=== PATIENT | female | born 1960 | race Caucasian/White ===

== ENCOUNTER 2020-02-06 13:39 | Inpatient (IN) | payer MEDICARE, SELFPAY ==
[2020-02-06 13:40] VITALS: BP 135/88; PULSE 79; RESP 18; TEMP 36.6; O2SAT 98; BMI 35.3
--- NOTE | 2020-02-06 14:10 | ED.DCSUM_ITS ---
History of Present Illness Chief Complaint: Wound Check Informant: Patient Onset: Days Context: Gradual Onset Current Severity: Moderate Maximum Severity: Moderate Narrative: Patient presents secondary to diabetic foot infection. She states she tends to have calluses on the top of her foot. This is followed closely by her facility maintenance supervisor at the [facility]. Last weekend, approximately 3 days ago, patient noted increased swelling and some drainage from the callused area on her foot. She was seen by her veneer jointer operator yesterday. I&D was performed in the office and cultures were sent. She was started on antibiotics. She believes she was started on clindamycin as well as one other antibiotic that she did not remember the name of. Patient states that she has been very nauseated and has had difficulty keeping these medications down. She spoke with her facility maintenance supervisor who felt she should be admitted for IV antibiotics. - Past Medical History (1) Diabetes Status: Chronic (2) Sleep apnea Status: Chronic (3) Neuropathy Status: Chronic (4) Asthma Status: Chronic (5) Hypertension Status: Chronic (6) High cholesterol Status: Chronic Past Medical History - Allergies and Home Meds Allergies/Adverse Reactions: Allergies Gadolinium-MRI Contrast Medium Allergy (Verified 02/06/20 13:43) Rash Penicillins Allergy (Verified 02/06/20 13:43) Rash Primary Care Physician: Yoandy Montoya MD [Primary Care Provider] - Doctors: Dr Ronquillo, podiatry at [facility] Prior records reviewed: Yes Review of Systems General: Reports: Chills. Denies: Fever Eyes: Denies: Visual changes - bilaterally ENT: Denies: Bilateral ear pain Cardiovascular: Denies: Chest pain Respiratory: Denies: Dyspnea, Cough Gastrointestinal: Reports: Nausea, Vomiting. Denies: Abdominal pain Genitourinary: Denies: Dysuria Musculoskeletal: Reports: Swelling, Extremity Pain Skin: Reports: Wounds Neurological: Denies: Headache Hematologic: Denies: Easy bruising, Easy bleeding Allergy: Denies: Uticaria Physical Exam Vital Signs/Narrative: Vital Signs Temp Pulse Resp BP Pulse Ox 02/06/20 13:40 98 F 79 18 135/88 H 98 Inital Vital Signs reviewed: Yes General: Well nourished, Well developed Head: Normocephalic ENT: Moist mucous membranes Neck: Supple Cardiovascular: Regular rate, Regular rhythm Respiratory: No distress, CTA bilaterally Abdomen: Soft, Nontender Extremities: - - Patient has significant edema over the distal aspect of the left foot. The base of the second toe is significantly edematous. There is an open wound on the plantar surface near the base of the second MTP joint. There is mild erythema outlined to the level of the distal metatarsals. This is unchanged when compared to line drawn yesterday. Psychological: Normal affect Diagnostic/Tx/Re-eval Impressions Foot X-Ray 02/06/20 15:10 IMPRESSION: Diffuse soft tissue swelling overlying the first second and third metatarsophalangeal joints. A small amount of air is seen within the soft tissues. Absence of the base of the proximal phalanx of the second toe. This may be secondary to osteomyelitis and bony destruction. Electronically Signed: Jesus Glover, at 15:27 EDT , Service support , 02/06/20 15:10 Foot min 3 Views [RAD] Stat Laboratory Results 02/06/20 02/06/20 14:26 14:26 WBC 10.8 RBC 4.49 Hgb 12.3 Hct 37.7 MCV 84.0 MCH 27.4 MCHC 32.6 RDW Std Deviation 40.1 RDW Coeff of Joseph 13.2 Plt Count 229 MPV 9.8 Immature Gran % (Auto) 0.800 Neut % (Auto) 80.6 H Lymph % (Auto) 10.8 L Amelia % (Auto) 5.8 Eos % (Auto) 1.7 Baso % (Auto) 0.3 Absolute Neuts (auto) 8.7 H Absolute Lymphs (auto) 1.17 Nucleated RBC % 0 Sodium 138 Potassium 3.5 Chloride 100 Carbon Dioxide 28.0 Anion Gap 10 BUN 14 Creatinine 0.68 Estim Creat Clear Calc 75.97 Est GFR (MDRD) Af Amer 113 Est GFR (MDRD) Non-Af 94 BUN/Creatinine Ratio 20.6 H Glucose 155 H Calcium 9.4 - Medical Decision Making Patient was given Phenergan for nausea. She was given vancomycin, Flagyl, and Cipro for diabetic infection with penicillin allergy. I did receive a fax from her facility maintenance supervisor in [place]. I&D was performed yesterday and wound culture was obtained at that time. Patient had an x-ray that showed no evidence of osteomyelitis. There were postsurgical changes from prior resection of the base of the second toe proximal phalanx. ED Disposition - Plan for ED Patient: Referrals: Yoandy Montoya MD [Primary Care Provider] -
[2020-02-06 14:37] LABS: Absolute Lymphocyte Count 1.17 X10^3/uL (0.83-4.51); Absolute Neutrophil Count 8.7 X10^3/uL (2.0-7.7); Basophil# 0.03 X10^3/uL; Basophil% 0.3 % (0-1); Eosinophil# 0.18 X10^3/uL; Eosinophils% 1.7 % (0-5); Hematocrit 37.7 % (37-47); Hemoglobin 12.3 g/dL (12.0-15.0); Lymphocyte # 1.17 X10^3/ul (4.0); Lymphocyte % 10.8 % (19-41); Mean Corp Hgb Conc 32.6 g/dL (32-36); Mean Corpuscular Hgb 27.4 pg (27.0-32.0); Mean Platelet Vol. 9.8 fl (6.2-12.0); Monocyte# 0.63 X10^3/uL; Monocyte% 5.8 % (0-10); NRBC Flagged by Analyzer 0 % (0-5); Neutrophil # 8.72 X10^3/uL (2.7-7.7); Neutrophil % 80.6 % (47-70); Platelet Count 229 K/mm3 (150-450); RBC Distribution Width CV 13.2 % (11.6-14.6); RBC Distribution Width SD 40.1 fl (35.1-43.9); Red Blood Count 4.49 M/mm3 (4.2-5.4); White Blood Count 10.8 K/mm3 (4.4-11.0)
[2020-02-06] MEDS: 0.9% Normal Saline 1,000 ML 150 ML IV (14:43)
[2020-02-06] MEDS: metroNIDAZOLE 500 MG/100 ML BAG 100 MG IV ×2 (14:43→21:55)
[2020-02-06] MEDS: proMETHazine 25 MG/ML Syringe 12.5 MG IV (14:57)
[2020-02-06 15:08] LABS: Anion Gap 10 (5-15); BUN 14 mg/dL (7-18); BUN/Creat Ratio 20.6 RATIO (10-20); Calcium,Total 9.4 mg/dL (8.5-10.1); Chloride 100 mmol/L (98-107); Creatinine, Serum 0.68 mg/dL (0.55-1.02); EST Glomerular Filtration Rate 94 mL/min (>60); Est Glom Filt Rate - Afr Amer 113 mL/min (>60); Estimated Creatinine Clearance 75.97 ml/min; Glucose 155 mg/dL (74-106); Potassium 3.5 mmol/L (3.5-5.1); Sodium Level 138 mmol/L (136-145)
--- NOTE | 2020-02-06 15:10 | RAD_ITS ---
STUDY: X-RAY - LEFT FOOT CLINICAL: Female, 59 years old. PATIENT WITH INFECTION IN FOOT WOUND. ON BOTTOM OF FOOT, NEAR 1ST AND 2ND TOES, BALL OF FOOT TECHNIQUE: 3 view(s) of the foot. COMPARISON: None. FINDINGS: There is a plantar calcaneal spur. Normal visualized subtalar, talonavicular, calcaneocuboid, tarsal and tarsometatarsal articulations. Normal metatarsi. Normal metatarsophalangeal joint of the great toe. Normal tibial and fibular sesamoid bones. Normal interphalangeal joint of the great toe. Normal phalanges of the great toe. Normal second through fifth metatarsophalangeal joints. There is absence of the base of the proximal phalanx of the second toe. Diffuse soft tissue swelling is seen overlying the first second and third metatarsophalangeal joints. A small amount of air is seen within the soft tissues. Osteomyelitis with destruction at the base of the proximal phalanx of the second toe should be ruled out. There is non-specific soft tissue swelling of the foot. RAD/Foot min 3 Views IMPRESSION: Diffuse soft tissue swelling overlying the first second and third metatarsophalangeal joints. A small amount of air is seen within the soft tissues. Absence of the base of the proximal phalanx of the second toe. This may be secondary to osteomyelitis and bony destruction. Electronically Signed: Jesus Glover, at 15:27 EDT , Service support ,
[2020-02-06 15:20] VITALS: BP 147/68; PULSE 80; RESP 18; TEMP 36.8; O2SAT 98
[2020-02-06] MEDS: Ciprofloxacin 400 MG/200 ML BAG 200 MG IV ×2 (15:28→23:05)
[2020-02-06 16:25] VITALS: BP 150/72; PULSE 77; RESP 16; TEMP 36.8; O2SAT 97
--- NOTE | 2020-02-06 16:26 | NURSING ---
MED SURG PAINTSIL DIABETIC FOOT INFECTION
--- NOTE | 2020-02-06 16:28 | PCM.HP.STD ---
History of Present Illness Date of Admission: 02/06/20 Chief Complaint: Left foot infection - 1 week The patient is a 59 year old F with past medical history of type II DM, complicated by history of previous foot infections, follows closely with radio repairer in the outpatient in the [facility] system, hypertension, who comes in with complaints of a left foot infection that started about a week ago. Patient noticed that her foot was getting swollen, and getting worse. She went in to see a radio repairer yesterday and had a local wound debridement done in the office. Patient had undergone work-up recently that was reported least negative for for acute osteomyelitis. She was started recently on antibiotics but had nausea and could not take the antibiotics. Emergency Room Tech recommended admission and IV antibiotics. Patient admitted to some chills but no fever. Denied any sick contacts. Denied any shortness of breath or cough or respiratory symptoms. Vitals showed temperature 98F, heart rate 79, blood pressure 135/88, respiratory rate is 18, SPO2 was 98% on room air. CBCD was unremarkable except for neutrophilia, WBC count of 10.8. BMP was unremarkable. X-ray of the foot showed diffuse soft tissue swelling over the first, second and third metatarsal phalangeal joints with a small amount of air in the soft tissue. There is absence of the proximal phalanx of the second toe. Past Medical History Past Medical History (Chronic Problems): Chronic Problems Diabetes (Chronic) Sleep apnea (Chronic) Neuropathy (Chronic) Asthma (Chronic) Hypertension (Chronic) High cholesterol (Chronic) Allergies Gadolinium-MRI Contrast Medium Allergy (Verified 02/06/20 13:43) Rash Penicillins Allergy (Verified 02/06/20 13:43) Rash Home Medications: Ambulatory Orders Medication Instructions Recorded Alpha Lipoic Acid 200 mg PO TID 02/06/20 Atenolol [Tenormin] 25 mg PO DAILY 02/06/20 Atorvastatin Calcium [Lipitor] 20 mg PO QHS 02/06/20 Cholecalciferol (VIT D3) [Vitamin 1,000 unit PO DAILY 02/06/20 D] Doxycycline Hyclate 20 mg PO DAILY 02/06/20 Dulaglutide [Trulicity] 1.5 mg SQ PALOMARES 02/06/20 Lisinopril [Zestril] 5 mg PO DAILY 02/06/20 Metformin HCl [Metformin HCl ER] 1,000 mg PO BID 02/06/20 [place]duel-3/Dha/Epa/Fish Oil [Fish Oil 2,000 mg PO DAILY 02/06/20 1,000 mg Softgel] Pregabalin 150 mg PO TID 02/06/20 Sertraline HCl [Zoloft] 100 mg PO DAILY 02/06/20 glipiZIDE XL [Glucotrol Xl] 5 mg PO DAILY@0800 02/06/20 Surgical History: appendectomy, hysterectomy, - - multiple caesarian sections Psychiatric History: No pertinent psych hx MAC DEVELOPER History: No pertinent MAC DEVELOPER history Lives: Spouse/ Significant Other Smoking Status: Never smoker Tobacco Use: Non-smoker Alcohol: None Drugs: None - *Family History Maternal History Items: Heart Disease, Hypertension Paternal History Items: Heart Disease, Hypertension Review of Systems Constitutional: Reports: Chills. Denies: Anorexia, Fever, Malaise, Weakness, Weight Change Eyes: Denies: Blurred vision, Cataracts, Conjunctivae Inflammation HEENT: Denies: Difficulty Hearing, Difficulty Swallowing, Head Aches, Hearing Changes, Sinus Congestion, Sinus Drainage Cardiovascular: Denies: Chest Pain, Claudication, Orthopnea, Palpitations, Paroxysmal Noc. Dyspnea Respiratory: Denies: Cough, Hemoptysis, Shortness of breath at rest, Shortness of breath upon exertion, Sputum production Gastrointestinal: Denies: Abdominal Pain, Nausea, Vomiting Genitourinary: Denies: Dysuria Musculoskeletal: Reports: Foot Pain. Denies: Joint Pain, Joint stiffness, Joint swelling, Joint Tenderness Skin: Denies: Rash, Wounds Neurological: Denies: Difficulty swallowing, Focal weakness, Numbness, Tingling Psychiatric: Denies: Anxiety, Depression, Homicidal Ideations, Suicidal Ideations Hematologic/ Lymphatic: Denies: Easy Bruising, Easy Bleeding VTE Information - Inpt Only VTE Present on Admission: No VTE Pharm Prophylaxis ordered?: Yes - Physical Exam Vitals/I&O's: Vital Signs Temp Pulse Resp BP Pulse Ox 98.2 F 77 16 150/72 H 97 02/06/20 16:25 02/06/20 16:25 02/06/20 16:25 02/06/20 16:25 02/06/20 16:25 Oxygen Delivery Method Room Air Weight: 93.3 kg Body Mass Index (BMI) 35.3 Intake and Output for Last 24 Hours 02/04/20 02/05/2020 23:59 23:59 23:59 Intake Total 100 / 100 Balance 100 / 100 General: Alert, Oriented x3, Cooperative, No apparent distress HEENT: Atraumatic, PERRLA, EOMI, Normocephalic Oral: Moist Mucosa Neck: Supple Lungs: Clear to auscultation, Normal air movement Cardiovascular: Regular rate, Regular Rhythm, Normal S1, Normal S2 Abdomen: Bowel Sounds Present, Soft, Non Tender, Non-Distended, No Hepato-splenomegaly Extremities: Edema - of the foot, erythema mostly between the 2nd metatarsophalangeal region and on the plantar regions of the 1st-3rd plantar Skin: No rashes, No breakdown Musculoskeletal: No Tenderness to Palpation of Joints or Extremities Neurological: Cranial nerves II-XII grossly intact Psych/Mental Status: Normal Affect, Appropriate Laboratory Results 02/06/20 14:26: WBC 10.8, RBC 4.49, Hgb 12.3, Hct 37.7, MCV 84.0, MCH 27.4, MCHC 32.6, RDW Std Deviation 40.1, RDW Coeff of Joseph 13.2, Plt Count 229, MPV 9.8, Immature Gran % (Auto) 0.800, Neut % (Auto) 80.6 H, Lymph % (Auto) 10.8 L, Cataño % (Auto) 5.8, Eos % (Auto) 1.7, Baso % (Auto) 0.3, Absolute Neuts (auto) 8.7 H, Absolute Lymphs (auto) 1.17, Nucleated RBC % 0 02/06/20 14:26: Sodium 138, Potassium 3.5, Chloride 100, Carbon Dioxide 28.0, Anion Gap 10, BUN 14, Creatinine 0.68, Estim Creat Clear Calc 75.97, Est GFR (MDRD) Af Amer 113, Est GFR (MDRD) Non-Af 94, BUN/Creatinine Ratio 20.6 H, Glucose 155 H, Calcium 9.4 Current Medications Sodium Chloride () 1,000 mls @ 150 mls/hr IV .[id number] [facility] Last Admin: 02/06/20 14:43 Dose: 150 mls/hr Documented by: Assessment/Plan 1. Acute left diabetic foot infection/abscess, probable osteomyelitis, status post failed outpatient antibiotics History of penicillin allergy -rash No fever, no leukocytosis, presence of localized infection of the left foot Podiatry consulted Started on IV vancomycin, Cipro and Flagyl, will continue same antibiotics Blood and wound cultures taken, will follow-up on results 2. Type 2 DM, on metformin, glipizide, Trulicity Will check HgbA1c, Will hold home meds for now Will continue on ISS with accuchecks 3. Hypertension, controlled, Will hold Lisinopril for now in light on hemodynamics Continue on atenolol 4. Hyperlipidemia, on statin 5. JAYSON on CPAP 6. DVT Ppx- Heparin SC Inpatient E&M: 03286 Init Hosp L3
[2020-02-06 17:22] VITALS: BP 161/74; PULSE 75; RESP 16; TEMP 36.6; O2SAT 98
[2020-02-06 17:25] VITALS: BMI 34.7
[2020-02-06 17:28] VITALS: BMI 34.8
[2020-02-06] MEDS: 0.9% Normal Saline 1,000 ML 75 ML IV (18:01)
--- NOTE | 2020-02-06 18:05 | PCM.RX.CS ---
Consult Pharmacy has been consulted to manage selected antiobiotic: Vancomycin Type of Consult: New start Suspected Infection: Skin/Soft tissue Prior Doses of Antibiotics Received/Current Regimen: VANCOMYCIN 1250MG IV X1 IN ED 02/06/20 @1627 Labs: Sodium 138 mmol/L (136-145) 02/06/20 14:26 Potassium 3.5 mmol/L (3.5-5.1) 02/06/20 14:26 Chloride 100 mmol/L (98-107) 02/06/20 14:26 Carbon Dioxide 28.0 mmol/L (21.0-32.0) 02/06/20 14:26 Anion Gap 10 (5-15) 02/06/20 14:26 BUN 14 mg/dL (7-18) 02/06/20 14:26 Creatinine 0.68 mg/dL (0.55-1.02) 02/06/20 14:26 Est GFR (MDRD) Af Amer 113 mL/min (>60) 02/06/20 14:26 Est GFR (MDRD) Non-Af 94 mL/min (>60) 02/06/20 14:26 BUN/Creatinine Ratio 20.6 RATIO (10-20) H 02/06/20 14:26 Glucose 155 mg/dL (74-106) H 02/06/20 14:26 Weight used for dosin kg Estimated Creatinine Clearance: 76 ML/MIN Goal Trough: 15-20 mcg/mL Pharmacy Plan for Drug Dosing: PLAN/RECOMMENDATIONS 1. Vancomycin 1250mg IV q12hr to start 02/07/20 @0400 2. Trough prior to 4th total dose 02/08/20 @0330 3. Pharmacy Service will continue to monitor and adjust dosing as required.
--- NOTE | 2020-02-06 18:06 | MRI_ITS ---
STUDY: MRI LEFT FOREFOOT WITHOUT CONTRAST REASON FOR EXAM: Female, 59 years old. LEFT foot wound, plantar and dorsal surface, base of 2nd MT and and quot;ball of foot area. Prior surgeries of LEFT foot years ago for bursitis and hammer toe TECHNIQUE: Standardized fat and water weighted pulse sequences were obtained in all 3 orthogonal planes. COMPARISON: Left foot x-ray dated February 06, 2020 FINDINGS: Mild cortical erosion is present at the base and dorsal surface of the second proximal phalanx compatible with active osteomyelitis. Deformity of the second proximal phalanx is known from previous surgical resection. The middle phalanx of the second digit is fused across the joint space with the head of the proximal phalanx. Mild patchy edema is seen in the head and shaft of the second metatarsal bone with the cortices are intact with sclerotic borders, which could be due to reactive changes or developing osteomyelitis. The defect of the undersurface of the head of the second metatarsal bone could be related to either prior surgery or prior infection with healing. Subcutaneous gas is present in the soft tissues over the dorsum of the second digit. A small subcutaneous abscess is also present over the dorsum of the second proximal phalanx measuring 1.75 cm in diameter. A small amount of fluid is also present near the head of the second metatarsal bone measuring 1.42 x 1.07 cm in diameter. The muscle fibers and the subcutaneous fat is diffusely demonstrates swollen regions. Moderate subcutaneous edema is present over the forefoot. A 2.98 cm fluid-filled and degenerated sesamoids bursal sac is present. Infection is not favored in this region. Intraosseous cystic changes are present in several of the tarsal bones. No signal is seen to suggest infection. The visualized flexor and extensor tendons are unremarkable. MRI/Lower Ext/No Jt/w/o IMPRESSION: 1. Mild to moderate osteomyelitis of the second proximal phalanx fragment 2. Mild developing osteomyelitis in the second metatarsal bone 3. A small subcutaneous abscess is also present over the dorsum of the second proximal phalanx measuring 1.75 cm in diameter. A small amount of fluid is also present near the head of the second metatarsal bone measuring 1.42 x 1.07 cm in diameter. N.B. : The above information has been verbally conveyed by Nik Vega MD to Dinesh Reyes MD, on 02/06/2020 21:14:15 (ET). Electronically Signed: Nik Vega MD at 21:15 EDT , Service support ,
--- NOTE | 2020-02-06 18:09 | ART_ITS ---
Reason For Study: Diabetic foot ulcer Procedure A bilateral lower extremity continuous wave Doppler with analog waveform analysis,segmental pressures,and ankle brachial indexes without exercise. Left Segmental Pressures Left brachial= 145mmHg. Left posterior tibial artery = 197mmHg. Left dorsalis pedis artery = 196mmHg. The left dorsalis pedis waveforms are triphasic. The left posterior tibial artery waveforms are triphasic. Right Segmental Pressures Right brachial= 153mmHg. Right posterior tibial artery = 196mmHg. Right dorsalis pedis artery = 200mmHg. Right digit = 121 mmHg. The right dorsalis pedis waveforms are triphasic. The right posterior tibial artery waveforms are triphasic. Indices The right ankle brachial index by the dorsalis pedis is 1.31. The right ankle brachial index by the posterior tibial artery is 1.28. The right digital-brachial index is 0.79. The left ankle brachial index by the dorsalis pedis is 1.28. The left ankle brachial index by the posterior tibial artery is 1.29. Interpretation Summary Triphasic Doppler waveforms are noted at ankle level bilaterally. Pulse-volume recordings appear satisfactory at all levels bilaterally. Resting ankle-brachial indices are normal bilaterally. The right digital-brachial index is normal. The left digital-brachial index was not determined due to the presence of bandages. There is no evidence of significant arterial occlusive disease in the lower extremities bilaterally. Ordering Physician: Dinesh Anne Referring Physician: Yoandy Montoya Performed By: Nancy Huang RVT
--- NOTE | 2020-02-06 18:10 | PCM.CONS.GEN ---
Reason for Consult Date of Consultation: 02/06/20 Reason for Consultation: Ulcer/infection left foot History of Present Illness: The patient is a 59 year old female with diabetes presented to the ER for left foot infection. She relates she has had a callus for the past several months and goes every other week to her foot doctor at [facility] to have it trimmed. She relates over the weekend site really worsened, and yesterday she went back to her foot doctor and was prescribed antibiotics. This is worsening, and patient came to [facility] for further evaluation and management. There is redness, swelling, drainage, and ulceration present. She relates she has had previous left 2nd toe hammer toe surgery which did not work so she had to have a reoperation to have the 2nd toe fused to the 3rd toe. She relates she has nausea. She relates her blood sugars have been well controlled, but just recently were high. Patient has been started on IV antibiotics. Patient does not have a fever or any other complaints. Past Medical History Past Medical History (Chronic Problems): Chronic Problems Diabetes (Chronic) Sleep apnea (Chronic) Neuropathy (Chronic) Asthma (Chronic) Hypertension (Chronic) High cholesterol (Chronic) Allergies Gadolinium-MRI Contrast Medium Allergy (Verified 02/06/20 13:43) Rash Penicillins Allergy (Verified 02/06/20 13:43) Rash Home Medications: Ambulatory Orders Medication Instructions Recorded Alpha Lipoic Acid 200 mg PO TID 02/06/20 Atenolol [Tenormin] 25 mg PO DAILY 02/06/20 Atorvastatin Calcium [Lipitor] 20 mg PO QHS 02/06/20 Cholecalciferol (VIT D3) [Vitamin 1,000 unit PO DAILY 02/06/20 D] Doxycycline Hyclate 20 mg PO DAILY 02/06/20 Dulaglutide [Trulicity] 1.5 mg SQ PALOMARES 02/06/20 Lisinopril [Zestril] 5 mg PO DAILY 02/06/20 Metformin HCl [Metformin HCl ER] 1,000 mg PO BID 02/06/20 [place]-3/Dha/Epa/Fish Oil [Fish Oil 2,000 mg PO DAILY 02/06/20 1,000 mg Softgel] Pregabalin 150 mg PO TID 02/06/20 Sertraline HCl [Zoloft] 100 mg PO DAILY 02/06/20 glipiZIDE XL [Glucotrol Xl] 5 mg PO DAILY@0800 02/06/20 Smoking Status: Never smoker Tobacco Use: Non-smoker Review of Systems Constitutional: Denies: Chills, Fever Gastrointestinal: Reports: Nausea. Denies: Vomiting Skin: Reports: Wounds - Physical Exam Vitals/I&O's: Vital Signs Temp Pulse Resp BP Pulse Ox 97.8 F 75 16 161/74 H 98 02/06/20 17:22 02/06/20 17:22 02/06/20 17:22 02/06/20 17:22 02/06/20 17:22 Oxygen Delivery Method Room Air Weight: 91.9 kg Body Mass Index (BMI) 34.7 Intake and Output for Last 24 Hours 02/04/20 02/05/20 02/06/20 23:59 23:59 23:59 Intake Total 790 / 790 Balance 790 / 790 General: Alert, Oriented x3, Cooperative, No apparent distress Extremities: Capillary Refill Less than 3 Seconds, No Calf Tenderness, - - Ulceration sub 2nd met head probes to deep subcutaneous tissue and joint level of 2nd MTPJ, there is sloughing skin with open lesion and abscess to the base of the 2nd toe down to bone, there is purulence from the site, there is localized cellulitis to the forefoot, there is no streaking or maloder present. There is nonviable tissue at the abscess site, and it is localized bogginess dorsal left foot over 1st IM space/base of 2nd toe. There are no other open lesions bilateral foot, no evidence of acute ischemia bilateral foot. Sensation decreased bilateral foot. The left 2nd toe is syndactylized to the 3rd toe. No POP or pain on ROM to the foot/ankle bilateral. No evidence of charcot neuroarthropathy bilateral foot. Swelling to the left foot c/w infection. Musculoskeletal: No Muscle Wasting Psych/Mental Status: Normal Affect, Appropriate, Alert and oriented to time, place, person, mood and affect Laboratory Results 02/06/20 14:26: WBC 10.8, RBC 4.49, Hgb 12.3, Hct 37.7, MCV 84.0, MCH 27.4, MCHC 32.6, RDW Std Deviation 40.1, RDW Coeff of Joseph 13.2, Plt Count 229, MPV 9.8, Immature Gran % (Auto) 0.800, Neut % (Auto) 80.6 H, Lymph % (Auto) 10.8 L, Collier % (Auto) 5.8, Eos % (Auto) 1.7, Baso % (Auto) 0.3, Absolute Neuts (auto) 8.7 H, Absolute Lymphs (auto) 1.17, Nucleated RBC % 0 02/06/20 14:26: Sodium 138, Potassium 3.5, Chloride 100, Carbon Dioxide 28.0, Anion Gap 10, BUN 14, Creatinine 0.68, Estim Creat Clear Calc 75.97, Est GFR (MDRD) Af Amer 113, Est GFR (MDRD) Non-Af 94, BUN/Creatinine Ratio 20.6 H, Glucose 155 H, Calcium 9.4 Current Medications Acetaminophen (Tylenol) 650 mg PO Q6H PRN PRN PRN Reason: Pain Score 1-10/Temp > 100.7 F Atenolol (Tenormin (Beta Carola)) 25 mg PO DAILY [facility] Atorvastatin Calcium (Lipitor) 20 mg PO QHS [facility] Cholecalciferol (Vitamin D (25mcg)) 1,000 unit PO DAILY [facility] Dextrose (D50w Syringe) 0 gm IV X1 PRN; Protocol PRN Reason: Hypoglycemia Glucagon () 1 mg IM .X1 PRN PRN Reason: Hypoglycemia Heparin Sodium (Porcine) (Heparin Na) 5,000 unit SC Q12 [facility] Sodium Chloride () 1,000 mls @ 75 mls/hr IV .[id number] [facility] Stop: 02/07/20 06:19 Last Admin: 02/06/20 18:01 Dose: 75 mls/hr Documented by: Sodium Chloride () 250 mls @ 15 mls/hr IV .[id number] PRN PRN Reason: Saline Flush Sodium Chloride () 250 mls @ 15 mls/hr IV .[id number] PRN PRN Reason: Additional IVPB Infusion Ciprofloxacin (Cipro) 400 mg in 200 mls @ 200 mls/hr IV Q12 [facility] Metronidazole (Flagyl) 500 mg in 100 mls @ 100 mls/hr IV Q8 [facility] Vancomycin IV Pharmacy to Dose (1 ea/ Sodium Chloride) 500 mls @ 250 mls/hr IV PRN PRN; Protocol PRN Reason: Rx to Dose Vancomycin HCl 1,250 mg/ (Sodium Chloride) 275 mls @ 167 mls/hr IV Q12H [facility] Insulin Human Lispro (Humalog Kwikpen (Bkc)) 0 unit SC ACHS [facility]; Protocol Ondansetron HCl (Zofran) 4 mg IV Q8H PRN PRN PRN Reason: NAUSEA/VOMITING Sertraline HCl (Zoloft) 100 mg PO DAILY [facility] Sodium Chloride () 10 - 40 ml IV UD PRN PRN Reason: SALINE FLUSH Assessment/Plan Cellulitis, Abscess and likely/suspected 2nd digit/metatarsal osteomyelitis left forefoot Ulceration down to bone left foot Diabetic neuropathy Reviewed diagnostic data, patient afebrile, WBC within normal limits. Reviewed left foot xrays - questionable osteomyelitis, and possible small amount of air seen - which is likely due the ulcer. Ordered MRI for further evaluation. Site was drained of purulence. Site was painted w/ betadine solution, applied gauze, kerlix and zach bandage. Keep clean, dry, and intact. A deep wound culture was obtained and sent to microbiology. Continue with broad spectrum antibiotics. We will plan to proceed with surgical intervention, patient NPO after midnight. Noninvasive lower extremity arterial studies ordered for further evaluation of flow to foot - no evidence of acute ischemia at this time. Infectious Disease will be consulted. Discussed with Dr. Swanson. Thank you for consultation, podiatry will continue to follow closely.
[2020-02-06 19:21] LABS: AST(SGOT) 15 U/L (15-37); Alanine Aminotransfer ALT/SGPT 18 U/L (13-56); Alkaline Phosphatase 91 U/L (45-117); Bilirubin, Direct 0.26 mg/dL (0.00-0.30); Globulin 4.7 g/dL (2.2-4.2); Protein, Total 7.7 g/dL (6.4-8.2)
[2020-02-06 19:35] LABS: M R Staph aureus DNA By PCR Negative (Negative); Probe Check PASS; Staph aureus DNA By PCR NEGATIVE (Negative)
[2020-02-06] MEDS: 0.9% Saline Lock 10 ML Syringe IV (19:54)
[2020-02-06] MEDS: Heparin Injection (Vial) 5,000 UNIT/ML VIAL 5000 UNIT SC (22:00)
[2020-02-06] MEDS: Insulin Lispro 100 UNIT/ML INSULN.PEN SC (22:01)
[2020-02-06] MEDS: Atorvastatin Calcium 20 MG Tablet PO (22:02)
[2020-02-06] MEDS: Ondansetron 4 MG/2 ML Vial IV (22:08)
[2020-02-06 23:00] VITALS: BP 126/50; PULSE 76; RESP 18; TEMP 36.8; O2SAT 93
[2020-02-07] VITALS (8 sets, daily range): BP systolic 136–154; BP diastolic 47–77; PULSE 70–82; RESP 16–18; TEMP 36.3–36.9; O2SAT 95–97; BMI 34.7
--- NOTE | 2020-02-07 | BON_PTH ---
PATIENT: NAOMI DUEÑAS LOC: [facility] U#:[id number] AGE/SX: 59/F ROOM: [facility] RE02/06/[address]: Dr. Juan Carlos Peña DO : 1960 BED: 1 DIS: 02/09/2020 SPEC #: [id number] RECD: 02/08/20 07:40 STATUS: GLADYS REXiomy #: [id number] MEET: 02/07/20 00:[address]: Dinesh Anne DEPT: SURGICAL PATHOLOGY RECD BY: Jose Manuel Powers ENTERED: 02/08/20 11:26 SP TYPE: Bone OTHR DR: MD Dr. Juan Carlos Dunlap DO Dr. Jeffrey Wunning, DPM MD Dr. Yoandy Upton MD Tissues: A - Bone of foot, NOS B - Bone of foot, NOS Procedures: PAS Fungus (control) Decalcification bone/plaque Special Stain Group I Surgery Specimen Level III Surgery Specimen Level IV AFB Stain (control) Comments: @ Ordering doctor for DEC edited from to @ by VINCE at 02/08/20 1137 @ Ordering doctor for SUIII edited from to @ giselle CLARKE at 02/08/20 1137 @ Submitting doctor edited from to @ giselle CLARKE at 02/08/20 1137 HEADER OPERATION: I & D debridement, poss amputation of foot PRE-OP DIAGNOSIS: Acute left diabetic foot infection/abscess, probable osteomyelitis TISSUE SUBMITTED: A - Left second toe and second metatarsal head, B - Clearance fragment and second metatarsal MICROSCOPIC DIAGNOSIS A. Left second toe and second metatarsal head, amputation: Focal ulceration, acute and chronic inflammation and abscess formation. Special stains for acid fast bacilli and fungi are negative for organisms; matched controls are appropriate. Bone with acute osteomyelitis. B. Clearance fragment and second metatarsal: Pieces of bone with acute osteomyelitis. SJ:rakesh 02/12/20 COMMENT B. Both pieces show acute osteomyelitis. Case has been reviewed in consultation with Dr. Beck who concurs with the above diagnosis. IDC:AM MICROSCOPIC DESCRIPTION Slides are reviewed. GROSS DESCRIPTION A - Received in fixative is one container labeled with the patient's name and designated left second toe and second metatarsal head. The specimen consists of a toe with attached skin, bone and soft tissue measuring 4.5 cm in length and 1.7 cm in diameter. The distal portion of the toe contains irregular dark strong skin. The bone at margin of resection is grossly unremarkable. Also present in the specimen container is an irregular fragment of detached bone that is light strong in color measuring 1.5 x 1.5 x 1.2 cm. Superintendent Terminal sections of both fragments are submitted in two cassettes after decalcification as follows: 1 - longitudinal segment of entire toe, 2 - direct marketing representative section of second fragment of bone in container. B - Received in fixative is one container labeled with the patient's name and designated clearance fragment. The specimen consists of two irregular fragments of strong bone that in aggregate measure 1.5 x 1 x 0.2 cm. The specimen is submitted in its entirety in one cassette after decalcification. / AM:rakesh 02/08/20 TC:2 CPT: 87784, 48287, 28053 x2, 98637 x2
[2020-02-07 01:31] LABS: Bedside Glucose 163 mg/dL (70-110)
[2020-02-07] MEDS: metroNIDAZOLE 500 MG/100 ML BAG 100 MG IV ×2 (05:53→13:51)
[2020-02-07] MEDS: 0.9% Saline Lock 10 ML Syringe IV ×3 (06:00→23:20)
[2020-02-07] MEDS: Ondansetron 4 MG/2 ML Vial IV (06:05)
[2020-02-07 06:29] LABS: Absolute Lymphocyte Count 1.98 X10^3/uL (0.83-4.51); Absolute Neutrophil Count 5.4 X10^3/uL (2.0-7.7); Basophil# 0.03 X10^3/uL; Basophil% 0.4 % (0-1); Eosinophil# 0.32 X10^3/uL; Eosinophils% 3.9 % (0-5); Lymphocyte # 1.98 X10^3/ul (4.0); Lymphocyte % 23.9 % (19-41); Mean Corp Hgb Conc 33.3 g/dL (32-36); Mean Corpuscular Hgb 28.1 pg (27.0-32.0); Mean Corpuscular Volume 84.2 fL (81-99); Mean Platelet Vol. 9.7 fl (6.2-12.0); NRBC Flagged by Analyzer 0 % (0-5); Neutrophil # 5.38 X10^3/uL (2.7-7.7); Neutrophil % 65.1 % (47-70); Platelet Count 199 K/mm3 (150-450); RBC Distribution Width CV 13.4 % (11.6-14.6); RBC Distribution Width SD 40.7 fl (35.1-43.9); Red Blood Count 3.92 M/mm3 (4.2-5.4); White Blood Count 8.3 K/mm3 (4.4-11.0)
[2020-02-07 06:55] LABS: ALB/GLOB Ratio 0.6 RATIO (0.9-2.4); AST(SGOT) 13 U/L (15-37); Alanine Aminotransfer ALT/SGPT 15 U/L (13-56); Albumin, Serum 2.5 g/dL (3.2-5.0); Alkaline Phosphatase 78 U/L (45-117); Anion Gap 7 (5-15); BUN 12 mg/dL (7-18); BUN/Creat Ratio 22.9 RATIO (10-20); Calcium,Total 8.4 mg/dL (8.5-10.1); Chloride 107 mmol/L (98-107); Creatinine, Serum 0.52 mg/dL (0.55-1.02); EST Glomerular Filtration Rate 127 mL/min (>60); Est Glom Filt Rate - Afr Amer 153 mL/min (>60); Estimated Creatinine Clearance 99.35 ml/min; Globulin 3.9 g/dL (2.2-4.2); Glucose 127 mg/dL (74-106); Potassium 3.2 mmol/L (3.5-5.1); Protein, Total 6.4 g/dL (6.4-8.2); Sodium Level 141 mmol/L (136-145)
[2020-02-07 07:11] LABS: Bedside Glucose 120 mg/dL (70-110)
--- NOTE | 2020-02-07 09:33 | PN_ITS ---
Reason for Visit: diabetic foot infection. Subjective: No new complaints at this time. Vitals/I&O's: Vital Signs Temp Pulse Resp BP Pulse Ox 36.5 C L 73 18 139/77 H 97 02/07/20 04:41 02/07/20 04:41 02/07/20 04:41 02/07/20 04:41 02/07/20 04:41 Oxygen Delivery Method Room Air Weight: 91.9 kg Body Mass Index (BMI) 34.7 Intake and Output for Last 24 Hours 02/05/20 02/06/20 02/07/20 23:59 23:59 23:59 Intake Total 1165 / 1565 1760 / 1760 Balance 1165 / 1565 1760 / 1760 General: Alert, No apparent distress HEENT: Atraumatic, Normocephalic Oral: Moist Mucosa, No Gingival or Mucosal Lesions/ Ulcerations Neck: No Nodes, Trachea Midline Lungs: Clear to auscultation, Normal air movement, No rhonchi, No wheeze, No rales Cardiovascular: Regular rate, Regular Rhythm, Normal S1, Normal S2, No murmurs Abdomen: Bowel Sounds Present, Soft, Non Tender, Non-Distended, No Hepato- splenomegaly Extremities: No edema, No Calf Tenderness, - - left foot in cast Psych/Mental Status: Normal Affect, Appropriate Microbiology Past 72 Hours 02/06/20 18:00 Wound - Left Foot Gram Stain - Final Laboratory Results 02/06/20 14:26: WBC 10.8, RBC 4.49, Hgb 12.3, Hct 37.7, MCV 84.0, MCH 27.4, MCHC 32.6, RDW Std Deviation 40.1, RDW Coeff of Joseph 13.2, Plt Count 229, MPV 9.8, Immature Gran % (Auto) 0.800, Neut % (Auto) 80.6 H, Lymph % (Auto) 10.8 L, [place] % (Auto) 5.8, Eos % (Auto) 1.7, Baso % (Auto) 0.3, Absolute Neuts (auto) 8.7 H, Absolute Lymphs (auto) 1.17, Nucleated RBC % 0 02/06/20 14:26: Sodium 138, Potassium 3.5, Chloride 100, Carbon Dioxide 28.0, Anion Gap 10, BUN 14, Creatinine 0.68, Estim Creat Clear Calc 75.97, Est GFR (MDRD) Af Amer 113, Est GFR (MDRD) Non-Af 94, BUN/Creatinine Ratio 20.6 H, Glucose 155 H, Calcium 9.4 02/06/20 14:26: Total Bilirubin 0.90, Direct Bilirubin 0.26, AST 15, ALT 18, Alkaline Phosphatase 91, Total Protein 7.7, Albumin 3.0 L, Globulin 4.7 H 02/06/20 14:26: Hemoglobin A1c 7.0 H 02/06/20 18:00: S.aureus Protein A PCR NEGATIVE, MRSA (PCR) Negative 02/06/20 21:46: POC Glucose 163 H 02/07/20 06:19: WBC 8.3, RBC 3.92 L, Hgb 11.0 L, Hct 33.0 L, MCV 84.2, MCH 28.1, MCHC 33.3, RDW Std Deviation 40.7, RDW Coeff of Joseph 13.4, Plt Count 199, MPV 9.7, Immature Gran % (Auto) 0.700, Neut % (Auto) 65.1, Lymph % (Auto) 23.9, [place] % (Auto) 6.0, Eos % (Auto) 3.9, Baso % (Auto) 0.4, Absolute Neuts (auto) 5.4, Absolute Lymphs (auto) 1.98, Nucleated RBC % 0 02/07/20 06:19: Sodium 141, Potassium 3.2 L, Chloride 107, Carbon Dioxide 27.0, Anion Gap 7, BUN 12, Creatinine 0.52 L, Estim Creat Clear Calc 99.35, Est GFR (MDRD) Af Amer 153, Est GFR (MDRD) Non-Af 127, BUN/Creatinine Ratio 22.9 H, Glucose 127 H, Calcium 8.4 L, Total Bilirubin 0.60, AST 13 L, ALT 15, Alkaline Phosphatase 78, Total Protein 6.4, Albumin 2.5 L, Globulin 3.9, Albumin/Globulin Ratio 0.6 L 02/07/20 07:04: POC Glucose 120 H Current Medications Acetaminophen (Tylenol) 650 mg PO Q6H PRN PRN PRN Reason: Pain Score 1-10/Temp > 100.7 F Atenolol (Tenormin (Beta Carola)) 25 mg PO DAILY [facility] Atorvastatin Calcium (Lipitor) 20 mg PO QHS [facility] Last Admin: 02/06/20 22:02 Dose: 20 mg Documented by: Cholecalciferol (Vitamin D (25mcg)) 1,000 unit PO DAILY [facility] Dextrose (D50w Syringe) 0 gm IV X1 PRN; Protocol PRN Reason: Hypoglycemia Glucagon () 1 mg IM .X1 PRN PRN Reason: Hypoglycemia Heparin Sodium (Porcine) (Heparin Na) 5,000 unit SC Q12 [facility] Last Admin: 02/06/20 22:00 Dose: 5,000 unit Documented by: Sodium Chloride () 250 mls @ 15 mls/hr IV .[id number] PRN PRN Reason: Saline Flush Sodium Chloride () 250 mls @ 15 mls/hr IV .[id number] PRN PRN Reason: Additional IVPB Infusion Ciprofloxacin (Cipro) 400 mg in 200 mls @ 200 mls/hr IV Q12 [facility] Last Infusion: 02/07/20 00:20 Dose: Infused Documented by: Metronidazole (Flagyl) 500 mg in 100 mls @ 100 mls/hr IV Q8 [facility] Last Infusion: 02/07/20 07:30 Dose: Infused Documented by: Vancomycin IV Pharmacy to Dose (1 ea/ Sodium Chloride) 500 mls @ 250 mls/hr IV PRN PRN; Protocol PRN Reason: Rx to Dose Vancomycin HCl 1,250 mg/ (Sodium Chloride) 275 mls @ 167 mls/hr IV Q12H [facility] Last Infusion: 02/07/20 05:42 Dose: Infused Documented by: Insulin Human Lispro (Humalog Kwikpen (Bkc)) 0 unit SC ACHS [facility]; Protocol Last Admin: 02/07/20 07:29 Dose: Not Given Documented by: Ondansetron HCl (Zofran) 4 mg IV Q8H PRN PRN PRN Reason: NAUSEA/VOMITING Last Admin: 02/07/20 06:05 Dose: 4 mg Documented by: Sertraline HCl (Zoloft) 100 mg PO DAILY [facility] Sodium Chloride () 10 - 40 ml IV UD PRN PRN Reason: SALINE FLUSH Last Admin: 02/07/20 06:00 Dose: 10 ml Documented by: Medical Necessity - Tobacco Use Smoking Status: Never smoker Tobacco Use: Non-smoker Assessment/Plan 1. left diabetic foot infection with osteomyelitis * MRI shows mild to moderate OM of the 2nd proximal phalanx, 2nd metatarsal plus a small SQ abscess overlying the 2nd proximal phalanx * plan for surgery today with Dr. Anne * ABIs currently being performed. * on ciprofloxacin, metronidazole and vanc * ID consult 2. DM 2 * fair control * home meds held for now, anticipate resumption post surgery * continue SSi for now. * a1c 7 3. hypokalemia * replace * check magnesium 4. VTE prophylaxis: SQ heparin. Inpatient E&M: 34023 Subs Hosp L2
[2020-02-07] MEDS: Ciprofloxacin 400 MG/200 ML BAG 200 MG IV (09:44)
[2020-02-07 10:21] LABS: Magnesium 1.5 mg/dL (1.6-2.6)
[2020-02-07] MEDS: Potassium Chloride 10mEq/100mL 10 MEQ/100 ML IV.SOLN. 100 MEQ IV BOLUS ×4 (10:59→18:10)
[2020-02-07 12:06] LABS: Bedside Glucose 146 mg/dL (70-110)
--- NOTE | 2020-02-07 13:07 | CASEMGMT ---
Assessment- SW completed assessment with patient at her bedside. Living situation- Patient lives with her in a 1 story home. She has 3 entry steps to get into her home. PCP: Dr Montoya Specialists: Dr Ronquillo- Podiatry at [facility]: [facility] DME: Walker, cane, shower chair, grab bars, and raised toilet seat ADL's/IADL's: Patient normally uses her walker to get around. Otherwise patient is independent. She drives, bathes herself, manages her own medications, assists with cooking and cleaning. Past SNF/rehab: None Past HH: She has had home health in the past when she lived in [place] LW: She has a Healthcare Living Will. She is aware it is not on file at [facility] and to bring in a copy when able. POA: She has a Healthcare Power of [employer]. She is aware it is not on file at [facility] and to bring in a copy when able. Plan: Patient's plan is to return home with home health and a wound vac. TADEO gave her a list of home health agencies that are in network with her insurance. TADEO told her we just need to know her preferred agency and we will set it up. She thanked TADEO for the information Dina CORONEL MSW
--- NOTE | 2020-02-07 14:38 | CON.PCM_ITS ---
Problem List (1) Osteomyelitis Status: Acute Reason for Consult: osteo Consulted by: Dr. Peña History of Present Illness: The patient is a 59 year old F with DM neuropathy, presented with several days of worsening L toe redness, swelling, purulence. Some chills, no fever. Developed nausea. 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 Has been on doxy assisted for her skin. Redness did not extend into her foot. Came to ED, MRI done, started on vanc/cipro/flagyl. OR planned for today. Full ROS performed and neg except as noted above. - Medical History Past Medical History (Chronic Problems): Chronic Problems Diabetes (Chronic) Sleep apnea (Chronic) Neuropathy (Chronic) Asthma (Chronic) Hypertension (Chronic) High cholesterol (Chronic) Allergies/Adverse Reactions: Allergies Gadolinium-MRI Contrast Medium Allergy (Verified 02/06/20 13:43) Rash Penicillins Allergy (Verified 02/06/20 13:43) Rash Home Medications: Ambulatory Orders Medication Instructions Recorded Alpha Lipoic Acid 200 mg PO TID 02/06/20 Atenolol [Tenormin] 25 mg PO DAILY 02/06/20 Atorvastatin Calcium [Lipitor] 20 mg PO QHS 02/06/20 Cholecalciferol (VIT D3) [Vitamin 1,000 unit PO DAILY 02/06/20 D] Doxycycline Hyclate 20 mg PO DAILY 02/06/20 Dulaglutide [Trulicity] 1.5 mg SQ PALOMARES 02/06/20 Lisinopril [Zestril] 5 mg PO DAILY 02/06/20 Metformin HCl [Metformin HCl ER] 1,000 mg PO BID 02/06/20 [place]-3/Dha/Epa/Fish Oil [Fish Oil 2,000 mg PO DAILY 02/06/20 1,000 mg Softgel] Pregabalin 150 mg PO TID 02/06/20 Sertraline HCl [Zoloft] 100 mg PO DAILY 02/06/20 glipiZIDE XL [Glucotrol Xl] 5 mg PO DAILY@0800 02/06/20 - Social History Tobacco Use: non-smoker Vital Signs Temp Pulse Resp BP Pulse Ox 98.4 F 80 18 144/67 H 95 02/07/20 09:40 02/07/20 09:40 02/07/20 09:40 02/07/20 09:40 02/07/20 09:40 Oxygen Delivery Method Room Air Weight: 91.9 kg Body Mass Index (BMI) 34.7 Microbiology Past 72 Hours 02/06/20 18:00 Gram Stain - Final Wound - Left Foot Wound Culture - Preliminary No growth-Final to follow Laboratory Tests Past 24 Hrs 02/06/20 02/06/20 02/06/20 14:26 14:26 14:26 WBC 10.8 RBC 4.49 Hgb 12.3 Hct 37.7 MCV 84.0 MCH 27.4 MCHC 32.6 RDW Std Deviation 40.1 RDW Coeff of Joseph 13.2 Plt Count 229 MPV 9.8 Immature Gran % (Auto) 0.800 Neut % (Auto) 80.6 H Lymph % (Auto) 10.8 L [place]uyler % (Auto) 5.8 Eos % (Auto) 1.7 Baso % (Auto) 0.3 Absolute Neuts (auto) 8.7 H Absolute Lymphs (auto) 1.17 Nucleated RBC % 0 Sodium 138 Potassium 3.5 Chloride 100 Carbon Dioxide 28.0 Anion Gap 10 BUN 14 Creatinine 0.68 Estim Creat Clear Calc 75.97 Est GFR (MDRD) Af Amer 113 Est GFR (MDRD) Non-Af 94 BUN/Creatinine Ratio 20.6 H Glucose 155 H Hemoglobin A1c Calcium 9.4 Magnesium Total Bilirubin 0.90 Direct Bilirubin 0.26 AST 15 ALT 18 Alkaline Phosphatase 91 Total Protein 7.7 Albumin 3.0 L Globulin 4.7 H Albumin/Globulin Ratio S.aureus Protein A PCR MRSA (PCR) 02/06/20 02/06/20 02/07/20 14:26 18:00 06:19 WBC 8.3 RBC 3.92 L Hgb 11.0 L Hct 33.0 L MCV 84.2 MCH 28.1 MCHC 33.3 RDW Std Deviation 40.7 RDW Coeff of Joseph 13.4 Plt Count 199 MPV 9.7 Immature Gran % (Auto) 0.700 Neut % (Auto) 65.1 Lymph % (Auto) 23.9 Schuyler % (Auto) 6.0 Eos % (Auto) 3.9 Baso % (Auto) 0.4 Absolute Neuts (auto) 5.4 Absolute Lymphs (auto) 1.98 Nucleated RBC % 0 Sodium Potassium Chloride Carbon Dioxide Anion Gap BUN Creatinine Estim Creat Clear Calc Est GFR (MDRD) Af Amer Est GFR (MDRD) Non-Af BUN/Creatinine Ratio Glucose Hemoglobin A1c 7.0 H Calcium Magnesium Total Bilirubin Direct Bilirubin AST ALT Alkaline Phosphatase Total Protein Albumin Globulin Albumin/Globulin Ratio S.aureus Protein A PCR NEGATIVE MRSA (PCR) Negative 02/07/20 02/07/20 06:19 06:19 WBC RBC Hgb Hct MCV MCH MCHC RDW Std Deviation RDW Coeff of Joseph Plt Count MPV Immature Gran % (Auto) Neut % (Auto) Lymph % (Auto) Schuyler % (Auto) Eos % (Auto) Baso % (Auto) Absolute Neuts (auto) Absolute Lymphs (auto) Nucleated RBC % Sodium 141 Potassium 3.2 L Chloride 107 Carbon Dioxide 27.0 Anion Gap 7 BUN 12 Creatinine 0.52 L Estim Creat Clear Calc 99.35 Est GFR (MDRD) Af Amer 153 Est GFR (MDRD) Non-Af 127 BUN/Creatinine Ratio 22.9 H Glucose 127 H Hemoglobin A1c Calcium 8.4 L Magnesium 1.5 L Total Bilirubin 0.60 Direct Bilirubin AST 13 L ALT 15 Alkaline Phosphatase 78 Total Protein 6.4 Albumin 2.5 L Globulin 3.9 Albumin/Globulin Ratio 0.6 L S.aureus Protein A PCR MRSA (PCR) - Other Studies Radiology: [] reviewed Other Studies: [] Route of nutrition/ use of supplements: [] Nutritional Intake: [] IV Site: [] Matute Catheter: [] - Physical Exam General: Alert, Oriented x3, Cooperative, No apparent distress HEENT: Atraumatic, PERRLA, EOMI Neck: Supple, No Nodes Lungs: Clear to auscultation, Normal air movement Cardiovascular: Regular rate, Regular Rhythm, No murmurs Abdomen: Soft, Non Tender, Non-Distended Extremities: No edema Skin: Ulcer/ Wound - L foot wrapped IV Site: Peripheral, without redness Musculoskeletal: No Tenderness to Palpation of Joints or Extremities Neurological: Cranial nerves II-XII grossly intact - Assessment/Plan Antibiotics: [] Assessment/Plan: [] L foot osteo and abscess seen on MRI with h/o DM neuropathy and prior toe fusion. Wound cx with GPC on gram stain. OR today for I&D. Reports rash with PCN, no issue with amox in the past. Will change abx to vanc/unasyn. Will follow, thank you.
[2020-02-07] MEDS: Lactated Ringers 1,000 ML 100 ML IV (15:02)
--- NOTE | 2020-02-07 15:38 | RAD_ITS ---
STUDY: X-RAY LEFT FOOT, SECOND TOE REASON FOR EXAM: Female, 59 years old. LEFT TOE AMPUTATION TECHNIQUE: 2 intraoperative fluoroscopic view(s) of the toe were obtained. COMPARISON: X-ray and MRI of the left foot dated February 06, 2020. FINDINGS: The patient is status post amputation of the head of the second metatarsal bone as well as surgical resection and removal of all 3 of the second phalanges. The surrounding bony structures are unremarkable. RAD/Toe(s) Min 2 Views IMPRESSION: Status post amputation second digits as above. Electronically Signed: Nik Vega MD at 18:26 EDT , Service support ,
--- NOTE | 2020-02-07 15:44 | CHAPLAIN ---
Type of Pastoral Visit _x__ Initial Visit ___ Follow-up Visit ___ On-call Visit ___ General Patient Visit ___ Spiritual Assessment ___ Family Conference ___ Bereavement ___ Rapid Response ___ Code Blue ___ Other (describe below) Pastoral Care Referral From _x__ Patient ___ Family ___ Nurse ___ Physician ___ Housekeeping Director ___ Retail Loan Officer ___ Other (describe below) Sacrament/Intervention _x__ Active listening ___ Anointing ___ Episcopal ___ Bereavement ___ Communion ___ Batsheva exploration ___ ___ Life review _x__ Prayer ___ Reconciliation ___ Sacrament of Sick _x__ Supportive presence ___ Wedding ___ Other (describe below) Pastoral Comments
[2020-02-07] MEDS: Bupivacaine Mpf 0.5% 30 ML VIAL (16:35)
--- NOTE | 2020-02-07 16:44 | OP.PCM_ITS ---
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 Removed left 2nd toe and 2nd metatarsal head - sent to pathology. 2. Bone culture left 2nd toe and 2nd met head - sent to microbiology. 3. Clearance fragment from left 2nd metatarsal - sent to pathology and microbiology Estimated Blood Loss (mL): 10mL Description of Procedure: Indications: The patient is a 59 year old female with multiple medical problems including diabetes, peripheral neuropathy who presented with left foot infection at level of the 2nd toe and 2nd metatarsal with sub 2nd met head ulceration, necrosis down to bone, and significant cellulitis and abscess formation. MRI showed significant osteomyelitis to the 2nd toe, as well as bone marrow edema to the 2nd metatarsal. There was incidentally noted to be a bursa sub 1st met head and per discussion with radiologist he did not feel this was due to infection. We discussed the options with the patient in great detail, and patient elected to proceed with the procedure. This was discussed with him in detail, reviewed the possible benefits vs risks. They were advised the risks include, but are not limited to pain, further infections, need for further surgery, nonhealing, delay healing, scarring, poor cosmetic result, numbness, weakness, loss of function, complex regional pain syndrome, blood clots, loss of limb, loss of life. They expressed understanding and agreement, they were able to repeat back, all questions were answered. The consent form was reviewed and it was freely signed. No guarantees were given nor implied. Operative Procedure: The patient was brought into the operating room, and was place on the operating room table in the supine position. The patient was carefully secured to the operating room table with a safely belt around the waist. A time out was performed, the patient was properly identified and the surgical plan was confirmed. The patient was already on IV antibiotics per Infectious Disease. A well padded pneumatic tourniquet was placed around the left ankle. The patient received MAC anesthesia per the anesthesiologist, then a total of 10mL of 0.5% Marcaine plain was given as a left foot 2nd ray block after the skin was cleansed with 70% isopropyl alcohol. The left foot was scrubbed, prepped and draped in the usual aseptic fashion. The left foot was elevated for 3 minutes, and the left ankle pneumatic tourniquet was inflated to 250mmHg. There was noted to be significant ulceration sub 2nd met head, abscess to the 2nd toe with necrosis down to bone of the 2nd toe with drainage and edema consistent with infection. Using a 15 scalpel blade, all nonviable, necrotic, infected soft tissue and bone was debrided, this entailed having to remove the entire 2nd toe at the level of the metatarsal phalangeal joint. The toe was disarticulated at the 5th metatarsal phalangeal joint. All of the phalanges of the 2nd toe were noted to be nonviable, soft, with areas of yellow/black and solis discoloration consistent with osteomyelitis. There was also purulence in the soft tissues of the toe with chronic abscess formation at the site. All nonviable bone and soft tissue was debrided in excisional fashion. The 2nd metatarsal head was visualized and also noted to be nonviable, bruce and soft consistent with infection. The shaft of the 2nd metatarsal appeared to be hard, healthy and viable. A bone culture was obtained from the 2nd toe and was sent to microbiology for further evaluation. The removed tissue was sent to pathology for further evaluation as well. The site was flushed out with copious amounts of normal saline solution. Using a powered sagittal saw a 2mm slice of bone was obtained from the 2nd metatarsal as clearance fragment and was sent to pathology and microbiology for further evaluation - this bone appeared white, hard, and viable. The ulceration sub 2nd metatarsal head measured 1cm x 0.5cm and down to bone with nonviable, fibrotic and some necrotic tissue. The ulceration was excised in sharp excisional fashion using a 15 blade, removing all nonviable unhealthy tissue, debrided down to healthy viable normal appearing tissue. The debrided tissue was sent with the 2nd toe and 2nd met head. All remaining tissues appeared to be healthy and viable, free of any infection. The site was again flushed out with copious amounts of normal saline solution. A flap was created with the remaining viable skin using a 15 blade, the skin edges were brought together and were reapproximated using 3-0 Prolene, leaving it open centrally and the site was packed with 1/4in Iodoform packing. The pneumatic tourniquet was deflated, and there was immediate return of good vascular flow to the left foot, with normal temperature gradient and CFT < 2 seconds to the amputation site and to all remaining toes. Total tourniquet time was 37 minutes. An additional 7mL of 0.5% Bupivacaine plain was given as a block around the site to aid with post op pain control. A dressing was applied which consisted of betadine soaked adaptic, 4x4 gauze, Kerlix and zach dressing. An xray was obtained of the foot which confirmed 2nd toe and 2nd metatarsal debridement/removal. Otherwise no acute osseous abnormality. Patient tolerated the above procedure well with no complications. He was tra nsferred back to the floor with vital signs stable and in good condition. No weightbearing left foot, keep left foot elevated. Keep foot elevated. Patient will be followed as inpatient. Grafts/Implants Used: None - Complications None
[2020-02-07 17:00] LABS: Bedside Glucose 94 mg/dL (70-110)
--- NOTE | 2020-02-07 17:30 | RAD_ITS ---
STUDY: X-RAY - LEFT FOOT CLINICAL: Female, 59 years old. post op debridement of left foot, 2nd digit TECHNIQUE: 3 view(s) of the foot. COMPARISON: X-ray and MRI of the left foot dated February 06, 2020. FINDINGS: The patient is status post amputation of the head of the second metatarsal bone as well as surgical resection and removal of all 3 of the second phalanges. The surrounding bony structures are unremarkable. Expected postoperative changes are seen in the soft tissues of the second digit surgical bed. Some pre-existing subcutaneous gas and swelling was present in this region due to infection. Normal visualized subtalar, talonavicular, calcaneocuboid, tarsal and tarsometatarsal articulations. Normal remaining metatarsi. RAD/Foot min 3 Views IMPRESSION: Status post amputation second digits as above. Electronically Signed: Nik Vega MD at 18:31 EDT , Service support ,
[2020-02-07] MEDS: Sertraline 100 MG Tablet PO (18:08)
[2020-02-07] MEDS: Atenolol 25 MG Tablet PO (18:08)
[2020-02-07] MEDS: Heparin Injection (Vial) 5,000 UNIT/ML VIAL 5000 UNIT SC (22:09)
[2020-02-07] MEDS: Glucerna Shake 120 ML LIQUID PO (22:09)
[2020-02-07] MEDS: Atorvastatin Calcium 20 MG Tablet PO (22:10)
[2020-02-07] MEDS: Insulin Lispro 100 UNIT/ML INSULN.PEN SC (22:11)
[2020-02-07 23:11] LABS: Bedside Glucose 160 mg/dL (70-110)
[2020-02-07] MEDS: Magnesium Sulfate 4gm/100mL 4 GM/100 ML IV.SOLN. IV (23:20)
[2020-02-08] MEDS: Insulin Lispro 100 UNIT/ML INSULN.PEN SC ×4 (07:00→22:10)
[2020-02-08 07:48] LABS: Bedside Glucose 184 mg/dL (70-110)
[2020-02-08 08:54] LABS: ALB/GLOB Ratio 0.8 RATIO (0.9-2.4); AST(SGOT) 18 U/L (15-37); Alanine Aminotransfer ALT/SGPT 16 U/L (13-56); Albumin, Serum 2.5 g/dL (3.2-5.0); Alkaline Phosphatase 75 U/L (45-117); Anion Gap 12 (5-15); BUN 11 mg/dL (7-18); BUN/Creat Ratio 26.8 RATIO (10-20); Chloride 110 mmol/L (98-107); Creatinine, Serum 0.41 mg/dL (0.55-1.02); EST Glomerular Filtration Rate 168 mL/min (>60); Est Glom Filt Rate - Afr Amer 204 mL/min (>60); Globulin 3.2 g/dL (2.2-4.2); Glucose 142 mg/dL (74-106); Magnesium 2.8 mg/dL (1.6-2.6); Potassium 3.9 mmol/L (3.5-5.1); Protein, Total 5.7 g/dL (6.4-8.2); Sodium Level 142 mmol/L (136-145)
[2020-02-08] MEDS: Sertraline 100 MG Tablet PO (09:02)
[2020-02-08] MEDS: Glucerna Shake 120 ML LIQUID PO ×4 (09:02→22:01)
[2020-02-08] MEDS: Heparin Injection (Vial) 5,000 UNIT/ML VIAL 5000 UNIT SC ×2 (09:02→22:10)
[2020-02-08 09:03] LABS: Vancomycin, Trough Level 10.3 ug/mL (5.0-15.0)
--- NOTE | 2020-02-08 09:04 | PN_ITS ---
Patient Problems: Active and Suspected Problems Osteomyelitis (Acute) Subjective: Patient was seen this morning for follow up on left foot. She was resting comfortably in bed, no complaints. No pain. No complaints of fever, chills, nausea or vomiting. - Physical Exam Vitals/I&O's: Vital Signs Temp Pulse Resp BP Pulse Ox 97.4 F L 71 16 140/70 H 96 02/07/20 22:10 02/07/20 22:10 02/07/20 22:10 02/07/20 22:10 02/07/20 22:10 Oxygen Delivery Method Room Air Weight: 91.9 kg Body Mass Index (BMI) 34.7 Finger Stick Blood Glucose 94 Intake and Output for Last 24 Hours 02/06/20 02/07/20 02/08/20 23:59 23:59 23:59 Intake Total 1165 / 1565 4193.67 / 4193.67 112 / 112 Output Total 400 / 400 Balance 1165 / 1565 3793.67 / 3793.67 112 / 112 General: Alert, Oriented x3, Cooperative, No apparent distress Extremities: Capillary Refill Less than 3 Seconds, No Calf Tenderness, Peripheral Pulses Normal, - - Left foot - significantly less cellulitis, site healing well, sutures intact, no dehiscence, no maloder, no fluctuance, no crepitus, no visible abscess, tissues healthy and viable with no evidence of ischemia. No POP or pain on ROM to the left foot. Microbiology Past 72 Hours 02/06/20 18:00 Wound - Left Foot Gram Stain - Final 02/06/20 18:00 Wound - Left Foot Wound Culture - Preliminary No growth-Final to follow Laboratory Results 02/07/20 06:19: Magnesium 1.5 L 02/07/20 11:44: POC Glucose 146 H 02/07/20 16:55: POC Glucose 94 02/07/20 21:55: POC Glucose 160 H 02/08/20 03:50: Vancomycin Trough 10.3 02/08/20 03:50: WBC Pending, RBC Pending, Hgb Pending, Hct Pending, MCV Pending, MCH Pending, MCHC Pending, RDW Std Deviation Pending, RDW Coeff of Joseph Pending, Plt Count Pending, Neut % (Auto) Pending, Absolute Neuts (auto) Pending 02/08/20 03:50: Sodium 142, Potassium 3.9, Chloride 110 H, Carbon Dioxide 20.0 L , Anion Gap 12, BUN 11, Creatinine 0.41 L, Estim Creat Clear Calc 126.00, Est GFR (MDRD) Af Amer 204, Est GFR (MDRD) Non-Af 168, BUN/Creatinine Ratio 26.8 H, Glucose 142 H, Calcium 8.0 L, Magnesium 2.8 H, Total Bilirubin 0.20, AST 18, ALT 16, Alkaline Phosphatase 75, Total Protein 5.7 L, Albumin 2.5 L, Globulin 3.2, Albumin/Globulin Ratio 0.8 L 02/08/20 06:54: POC Glucose 184 H Current Medications Acetaminophen (Tylenol) 650 mg PO Q6H PRN PRN PRN Reason: Pain Score 1-10/Temp > 100.7 F Atenolol (Tenormin (Beta Carola)) 25 mg PO DAILY [facility] Last Admin: 02/07/20 18:08 Dose: 25 mg Documented by: Atorvastatin Calcium (Lipitor) 20 mg PO QHS [facility] Last Admin: 02/07/20 22:10 Dose: 20 mg Documented by: Cholecalciferol (Vitamin D (25mcg)) 1,000 unit PO DAILY [facility] Last Admin: 02/07/20 18:08 Dose: 1,000 unit Documented by: Dextrose (D50w Syringe) 0 gm IV X1 PRN; Protocol PRN Reason: Hypoglycemia Glucagon () 1 mg IM .X1 PRN PRN Reason: Hypoglycemia Heparin Sodium (Porcine) (Heparin Na) 5,000 unit SC Q12 [facility] Last Admin: 02/07/20 22:09 Dose: 5,000 unit Documented by: Sodium Chloride () 250 mls @ 15 mls/hr IV .[id number] PRN PRN Reason: Saline Flush Last Infusion: 02/08/20 00:05 Dose: 15 mls/hr Documented by: Sodium Chloride () 250 mls @ 15 mls/hr IV .[id number] PRN PRN Reason: Additional IVPB Infusion Vancomycin IV Pharmacy to Dose (1 ea/ Sodium Chloride) 500 mls @ 250 mls/hr IV PRN PRN; Protocol PRN Reason: Rx to Dose Vancomycin HCl 1,250 mg/ (Sodium Chloride) 275 mls @ 167 mls/hr IV Q12H [facility] Last Infusion: 04/01/20 19:54 Dose: Infused Documented by: Ampicillin Sodium/Sulbactam (Sodium 3 gm/ Sodium Chloride) 112 mls @ 150 mls/hr IV Q6 [facility] Last Infusion: 02/08/20 00:05 Dose: Infused Documented by: Lactated Ringer's () 1,000 mls @ 100 mls/hr IV .Q10H [facility] Last Infusion: 02/07/20 23:20 Dose: 0 mls/hr Documented by: Insulin Human Lispro (Humalog Kwikpen (Bkc)) 0 unit SC ACHS [facility]; Protocol Last Admin: 02/07/20 22:11 Dose: 1 units Documented by: Nutritional Formula (Alli - [place] Flavor) 1 packet PO BIDCM [facility] Last Admin: 02/07/20 18:13 Dose: 1 packet Documented by: Nutritional Formula (Lactose Free) (Glucerna Shake) 120 ml PO 4X/DAY [facility] Last Admin: 02/07/20 22:09 Dose: 120 ml Documented by: Ondansetron HCl (Zofran) 4 mg IV Q8H PRN PRN PRN Reason: NAUSEA/VOMITING Last Admin: 02/07/20 06:05 Dose: 4 mg Documented by: Sertraline HCl (Zoloft) 100 mg PO DAILY [facility] Last Admin: 02/07/20 18:08 Dose: 100 mg Documented by: Sodium Chloride () 10 - 40 ml IV UD PRN PRN Reason: SALINE FLUSH Last Admin: 02/07/20 23:20 Dose: 10 ml Documented by: Medical Necessity - Tobacco Use Smoking Status: Never smoker Tobacco Use: Non-smoker Assessment/Plan All Active Problems Osteomyelitis (Acute) -Cellulitis, Abscess and likely/suspected 2nd digit/metatarsal osteomyelitis left forefoot, Ulceration down to bone left foot - s/p debridement, 2nd toe and 2nd met head resection on 02/07/20 -Diabetic neuropathy Left foot improving and looks good today. Changed dressing applied gauze, kerlix and zach bandage. Keep clean, dry, and intact. Continue to follow cultures - patient on IV antibiotics per Dr. Avalos/In fectious Disease. Reviewed noninvasive lower extremity arterial studies - good arterial flow to foot. Ok to d/c from foot standpoint once final antibiotic plan is determined. Podiatry will continue to follow.
--- NOTE | 2020-02-08 09:54 | PCM.RX.CS ---
Consult Pharmacy has been consulted to manage selected antiobiotic: Vancomycin Type of Consult: Follow-up Suspected Infection: Osteomyelitis Prior Doses of Antibiotics Received/Current Regimen: Vancomycin 1250mg IV 02/06 @ 1815 Labs: Sodium 142 mmol/L (136-145) 02/08/20 03:50 Potassium 3.9 mmol/L (3.5-5.1) 02/08/20 03:50 Chloride 110 mmol/L (98-107) H 02/08/20 03:50 Carbon Dioxide 20.0 mmol/L (21.0-32.0) L 02/08/20 03:50 Anion Gap 12 (5-15) 02/08/20 03:50 BUN 11 mg/dL (7-18) 02/08/20 03:50 Creatinine 0.41 mg/dL (0.55-1.02) L 02/08/20 03:50 Est GFR (MDRD) Af Amer 204 mL/min (>60) 02/08/20 03:50 Est GFR (MDRD) Non-Af 168 mL/min (>60) 02/08/20 03:50 BUN/Creatinine Ratio 26.8 RATIO (10-20) H 02/08/20 03:50 Glucose 142 mg/dL (74-106) H 02/08/20 03:50 Vancomycin Trough 10.3 ug/mL (5.0-15.0) 02/08/20 03:50 Microbiology: Microbiology 02/06/20 18:00 Wound - Left Foot Gram Stain - Final 02/06/20 18:00 Wound - Left Foot Wound Culture - Preliminary No growth-Final to follow Estimated Creatinine Clearance: 126 Goal Trough: 15-20 mcg/mL Pharmacy Plan for Drug Dosin hour level came back at 10.3mg/dL which is below goal therapeutic range of 15-20mg/dL. True trough of 12 hours would be lower and creatinine clearance has increased so will increase the dose more aggressively. 1. Will increase dose to 1750mg Q12H starting today at 1600 (1250mg dose given this morning at 0410 per paper charting reported by nurse) 2. Trough scheduled prior to the 4th dose of the new regimen 3. Pharmacy Service will continue to monitor and adjust dosing as required. Labs to be done on [date and time ordered]: 02/10/20 @ 0114
--- NOTE | 2020-02-08 10:43 | PCM.PN.HOSP ---
Patient Problems: Active and Suspected Problems Osteomyelitis (Acute) Reason for Visit: osteomyelitis Subjective: no new events. feels well post-operatively Vitals/I&O's: Vital Signs Temp Pulse Resp BP Pulse Ox 36.3 C L 71 16 140/70 H 96 02/07/20 22:10 02/07/20 22:10 02/07/20 22:10 02/07/20 22:10 02/07/20 22:10 Oxygen Delivery Method Room Air Weight: 91.9 kg Body Mass Index (BMI) 34.7 Finger Stick Blood Glucose 94 Intake and Output for Last 24 Hours 02/06/20 02/07/20 02/08/20 23:59 23:59 23:59 Intake Total 1165 / 1565 4193.67 / 4193.67 112 / 112 Output Total 400 / 400 Balance 1165 / 1565 3793.67 / 3793.67 112 / 112 General: Alert, Cooperative, No apparent distress HEENT: Atraumatic, Normocephalic Oral: Moist Mucosa, No Gingival or Mucosal Lesions/ Ulcerations Neck: No Nodes, Trachea Midline Lungs: Clear to auscultation, Normal air movement, No rhonchi, No wheeze, No rales Cardiovascular: Regular rate, Regular Rhythm, Normal S1, Normal S2, No murmurs Abdomen: Bowel Sounds Present, Soft, Non Tender, Non-Distended, No Hepato-splenomegaly Extremities: - - left foot and ankle wrapped--did not remove. Psych/Mental Status: Normal Affect, Appropriate Microbiology Past 72 Hours 02/06/20 18:00 Wound - Left Foot Gram Stain - Final 02/06/20 18:00 Wound - Left Foot Wound Culture - Preliminary No growth-Final to follow 02/06/20 18:00 Wound - Left Foot Anaerobic Culture - Preliminary Laboratory Results 02/07/20 11:44: POC Glucose 146 H 02/07/20 16:55: POC Glucose 94 02/07/20 21:55: POC Glucose 160 H 02/08/20 03:50: Vancomycin Trough 10.3 02/08/20 03:50: WBC Pending, RBC Pending, Hgb Pending, Hct Pending, MCV Pending, MCH Pending, MCHC Pending, RDW Std Deviation Pending, RDW Coeff of Joseph Pending, Plt Count Pending, Neut % (Auto) Pending, Absolute Neuts (auto) Pending 02/08/20 03:50: Sodium 142, Potassium 3.9, Chloride 110 H, Carbon Dioxide 20.0 L, Anion Gap 12, BUN 11, Creatinine 0.41 L, Estim Creat Clear Calc 126.00, Est GFR (MDRD) Af Amer 204, Est GFR (MDRD) Non-Af 168, BUN/Creatinine Ratio 26.8 H, Glucose 142 H, Calcium 8.0 L, Magnesium 2.8 H, Total Bilirubin 0.20, AST 18, ALT 16, Alkaline Phosphatase 75, Total Protein 5.7 L, Albumin 2.5 L, Globulin 3.2, Albumin/Globulin Ratio 0.8 L 02/08/20 06:54: POC Glucose 184 H Current Medications Acetaminophen (Tylenol) 650 mg PO Q6H PRN PRN PRN Reason: Pain Score 1-10/Temp > 100.7 F Atenolol (Tenormin (Beta Carola)) 25 mg PO DAILY [facility] Last Admin: 02/07/20 18:08 Dose: 25 mg Documented by: Atorvastatin Calcium (Lipitor) 20 mg PO QHS [facility] Last Admin: 02/07/20 22:10 Dose: 20 mg Documented by: Cholecalciferol (Vitamin D (25mcg)) 1,000 unit PO DAILY [facility] Last Admin: 02/07/20 18:08 Dose: 1,000 unit Documented by: Dextrose (D50w Syringe) 0 gm IV X1 PRN; Protocol PRN Reason: Hypoglycemia Glucagon () 1 mg IM .X1 PRN PRN Reason: Hypoglycemia Heparin Sodium (Porcine) (Heparin Na) 5,000 unit SC Q12 [facility] Last Admin: 02/07/20 22:09 Dose: 5,000 unit Documented by: Sodium Chloride () 250 mls @ 15 mls/hr IV .[id number] PRN PRN Reason: Saline Flush Last Infusion: 02/08/20 00:05 Dose: 15 mls/hr Documented by: Sodium Chloride () 250 mls @ 15 mls/hr IV .[id number] PRN PRN Reason: Additional IVPB Infusion Vancomycin IV Pharmacy to Dose (1 ea/ Sodium Chloride) 500 mls @ 250 mls/hr IV PRN PRN; Protocol PRN Reason: Rx to Dose Ampicillin Sodium/Sulbactam (Sodium 3 gm/ Sodium Chloride) 112 mls @ 150 mls/hr IV Q6 [facility] Last Infusion: 02/08/20 00:05 Dose: Infused Documented by: Lactated Ringer's () 1,000 mls @ 100 mls/hr IV .Q10H [facility] Last Infusion: 02/07/20 23:20 Dose: 0 mls/hr Documented by: Vancomycin HCl 1,750 mg/ (Sodium Chloride) 535 mls @ 250 mls/hr IV Q12H [facility] Insulin Human Lispro (Humalog Kwikpen (Bkc)) 0 unit SC ACHS [facility]; Protocol Last Admin: 02/07/20 22:11 Dose: 1 units Documented by: Nutritional Formula (Alli - [place] Flavor) 1 packet PO BIDCM [facility] Last Admin: 02/07/20 18:13 Dose: 1 packet Documented by: Nutritional Formula (Lactose Free) (Glucerna Shake) 120 ml PO 4X/DAY [facility] Last Admin: 02/07/20 22:09 Dose: 120 ml Documented by: Ondansetron HCl (Zofran) 4 mg IV Q8H PRN PRN PRN Reason: NAUSEA/VOMITING Last Admin: 02/07/20 06:05 Dose: 4 mg Documented by: Sertraline HCl (Zoloft) 100 mg PO DAILY [facility] Last Admin: 02/07/20 18:08 Dose: 100 mg Documented by: Sodium Chloride () 10 - 40 ml IV UD PRN PRN Reason: SALINE FLUSH Last Admin: 02/07/20 23:20 Dose: 10 ml Documented by: Medical Necessity - Tobacco Use Smoking Status: Never smoker Tobacco Use: Non-smoker Assessment/Plan All Active Problems Osteomyelitis (Acute) 1. left diabetic foot infection with osteomyelitis MRI shows mild to moderate OM of the 2nd proximal phalanx, 2nd metatarsal plus a small SQ abscess overlying the 2nd proximal phalanx plan for surgery today with Dr. Dayana Nguyen currently being performed. on ciprofloxacin, metronidazole and vanc ID consult 2. DM 2 fair control home meds held for now, anticipate resumption post surgery continue SSi for now. a1c 7 3. hypokalemia improved after replacement 4. VTE prophylaxis: SQ heparin. Inpatient E&M: 52221 [facility] L2
[2020-02-08 11:52] LABS: Absolute Lymphocyte Count 2.06 X10^3/uL (0.83-4.51); Absolute Neutrophil Count 5.8 X10^3/uL (2.0-7.7); Basophil# 0.07 X10^3/uL; Basophil% 0.8 % (0-1); Eosinophil# 0.44 X10^3/uL; Hematocrit 34.4 % (37-47); Lymphocyte # 2.06 X10^3/ul (4.0); Lymphocyte % 23.2 % (19-41); Mean Corpuscular Hgb 28.4 pg (27.0-32.0); Mean Corpuscular Volume 88.7 fL (81-99); Mean Platelet Vol. 9.5 fl (6.2-12.0); Monocyte% 4.5 % (0-10); NRBC Flagged by Analyzer 0 % (0-5); Neutrophil # 5.76 X10^3/uL (2.7-7.7); Neutrophil % 64.9 % (47-70); Platelet Count 216 K/mm3 (150-450); RBC Distribution Width CV 13.2 % (11.6-14.6); RBC Distribution Width SD 42.6 fl (35.1-43.9); Red Blood Count 3.88 M/mm3 (4.2-5.4); White Blood Count 8.9 K/mm3 (4.4-11.0)
[2020-02-08 12:21] LABS: Bedside Glucose 191 mg/dL (70-110)
[2020-02-08] MEDS: Lactated Ringers 1,000 ML 100 ML IV (14:19)
[2020-02-08 14:23] VITALS: BP 186/84; PULSE 73; RESP 18; TEMP 36.6; O2SAT 95
[2020-02-08] MEDS: Lisinopril 5 MG Tablet PO (14:30)
--- NOTE | 2020-02-08 14:35 | PN.ID_ITS ---
Patient Problems: Active and Suspected Problems Osteomyelitis (Acute) Subjective: Feeling ok, no fever, no n/v/d, no pain in foot, no rash with iv abx. - Physical Exam Vitals/I&O's: Vital Signs Temp Pulse Resp BP Pulse Ox 97.8 F 73 18 186/84 H 95 02/08/20 14:23 02/08/20 14:23 02/08/20 14:23 02/08/20 14:23 02/08/20 14:23 Oxygen Delivery Method Room Air Weight: 91.9 kg Body Mass Index (BMI) 34.7 Finger Stick Blood Glucose 94 Intake and Output for Last 24 Hours 02/06/20 02/07/20 02/08/20 23:59 23:59 23:59 Intake Total 1165 / 1565 4193.67 / 4193.67 1277.33 / 1277.33 Output Total 400 / 400 500 / 500 Balance 1165 / 1565 3793.67 / 3793.67 777.33 / 777.33 General: Alert, Cooperative, No apparent distress Lungs: Clear to auscultation, Normal air movement Cardiovascular: Regular rate, Regular Rhythm Abdomen: Soft, Non Tender, Non-Distended Skin: No rashes, Ulcer/ Wound - foot wrapped Microbiology Past 72 Hours 02/06/20 14:23 Blood Culture (Wb) - Anticubital Left Blood Culture - Preliminary No growth in 48 hours. 02/06/20 14:26 Blood Culture (Wb) - Anticubital Right Blood Culture - Preliminary No growth in 48 hours. 02/07/20 16:00 Bone - Toe Gram Stain - Final 02/07/20 16:00 Bone - Toe Gram Stain - Final 02/06/20 18:00 Wound - Left Foot Gram Stain - Final 02/06/20 18:00 Wound - Left Foot Wound Culture - Preliminary Streptococcus group B Laboratory Results 02/07/20 16:55: POC Glucose 94 02/07/20 21:55: POC Glucose 160 H 02/08/20 03:50: Vancomycin Trough 10.3 02/08/20 03:50: WBC 8.9, RBC 3.88 L, Hgb 11.0 L, Hct 34.4 L, MCV 88.7 D, MCH 28.4, MCHC 32.0, RDW Std Deviation 42.6, RDW Coeff of Joseph 13.2, Plt Count 216, MPV 9.5, Immature Gran % (Auto) 1.600 H, Neut % (Auto) 64.9, Lymph % (Auto) 23.2, Harris % (Auto) 4.5, Eos % (Auto) 5.0, Baso % (Auto) 0.8, Absolute Neuts (auto) 5.8, Absolute Lymphs (auto) 2.06, Nucleated RBC % 0 02/08/20 03:50: Sodium 142, Potassium 3.9, Chloride 110 H, Carbon Dioxide 20.0 L , Anion Gap 12, BUN 11, Creatinine 0.41 L, Estim Creat Clear Calc 126.00, Est GFR (MDRD) Af Amer 204, Est GFR (MDRD) Non-Af 168, BUN/Creatinine Ratio 26.8 H, Glucose 142 H, Calcium 8.0 L, Magnesium 2.8 H, Total Bilirubin 0.20, AST 18, ALT 16, Alkaline Phosphatase 75, Total Protein 5.7 L, Albumin 2.5 L, Globulin 3.2, Albumin/Globulin Ratio 0.8 L 02/08/20 06:54: POC Glucose 184 H 02/08/20 11:51: POC Glucose 191 H Current Medications Acetaminophen (Tylenol) 650 mg PO Q6H PRN PRN PRN Reason: Pain Score 1-10/Temp > 100.7 F Atenolol (Tenormin (Beta Carola)) 25 mg PO DAILY [facility] Last Admin: 02/08/20 10:00 Dose: Not Given Documented by: Atorvastatin Calcium (Lipitor) 20 mg PO QHS [facility] Last Admin: 02/07/20 22:10 Dose: 20 mg Documented by: Cholecalciferol (Vitamin D (25mcg)) 1,000 unit PO DAILY [facility] Last Admin: 02/08/20 09:02 Dose: 1,000 unit Documented by: Dextrose (D50w Syringe) 0 gm IV X1 PRN; Protocol PRN Reason: Hypoglycemia Glipizide (Glucotrol Xl) 5 mg PO DAILY@0800 [facility] Glucagon () 1 mg IM .X1 PRN PRN Reason: Hypoglycemia Heparin Sodium (Porcine) (Heparin Na) 5,000 unit SC Q12 [facility] Last Admin: 02/08/20 09:02 Dose: 5,000 unit Documented by: Sodium Chloride () 250 mls @ 15 mls/hr IV .[id number] PRN PRN Reason: Saline Flush Last Infusion: 02/08/20 08:45 Dose: 15 mls/hr Documented by: Sodium Chloride () 250 mls @ 15 mls/hr IV .[id number] PRN PRN Reason: Additional IVPB Infusion Vancomycin IV Pharmacy to Dose (1 ea/ Sodium Chloride) 500 mls @ 250 mls/hr IV PRN PRN; Protocol PRN Reason: Rx to Dose Ampicillin Sodium/Sulbactam (Sodium 3 gm/ Sodium Chloride) 112 mls @ 150 mls/hr IV Q6 [facility] Last Admin: 02/08/20 12:03 Dose: 150 mls/hr Documented by: Lactated Ringer's () 1,000 mls @ 100 mls/hr IV .Q10H [facility] Last Admin: 02/08/20 14:19 Dose: 100 mls/hr Documented by: Vancomycin HCl 1,750 mg/ (Sodium Chloride) 535 mls @ 250 mls/hr IV Q12H [facility] Insulin Human Lispro (Humalog Kwikpen (Bkc)) 0 unit SC ACHS [facility]; Protocol Last Admin: 02/08/20 12:03 Dose: 1 units Documented by: Lisinopril (Zestril) 5 mg PO DAILY [facility] Last Admin: 02/08/20 14:30 Dose: 5 mg Documented by: Metformin HCl (Glucophage Xr) 1,000 mg PO BIDCM [facility] Nutritional Formula (Alli - [place] Flavor) 1 packet PO BIDCM [facility] Last Admin: 02/08/20 09:02 Dose: 1 packet Documented by: Nutritional Formula (Lactose Free) (Glucerna Shake) 120 ml PO 4X/DAY [facility] Last Admin: 02/08/20 14:19 Dose: 120 ml Documented by: Ondansetron HCl (Zofran) 4 mg IV Q8H PRN PRN PRN Reason: NAUSEA/VOMITING Last Admin: 02/07/20 06:05 Dose: 4 mg Documented by: Pregabalin (Lyrica) 300 mg PO QHS [facility] Pregabalin (Lyrica) 150 mg PO BREAKFAST [facility] Sertraline HCl (Zoloft) 100 mg PO DAILY [facility] Last Admin: 02/08/20 09:02 Dose: 100 mg Documented by: Sodium Chloride () 10 - 40 ml IV UD PRN PRN Reason: SALINE FLUSH Last Admin: 02/07/20 23:20 Dose: 10 ml Documented by: Medical Necessity - Tobacco Use Smoking Status: Never smoker Tobacco Use: Non-smoker Route of nutrition/ use of supplements: [] Nutritional Intake: [] IV Site: [] Matute Catheter: [] - Assessment/Plan Antibiotics: [] Assessment/Plan: [] L foot osteo and abscess seen on MRI with h/o DM neuropathy and prior toe fusion. Wound cx with GPC on gram stain, cx now showing strep. OR 02/[address] Anne for I&D. Reports rash with PCN, no issue with amox in the past. Cont vanc/unasyn. Will follow, d/w case management rn
[2020-02-08] MEDS: metFORMIN (XR) 500 MG Tablet 1000 MG PO (17:18)
[2020-02-08 17:35] LABS: Bedside Glucose 153 mg/dL (70-110)
[2020-02-08] MEDS: 0.9% Saline Lock 10 ML Syringe IV (20:07)
[2020-02-08 20:17] VITALS: BP 165/73; PULSE 74; RESP 20; TEMP 36.4; O2SAT 95
[2020-02-08] MEDS: Acetaminophen 325 MG Tablet 650 MG PO (21:59)
[2020-02-08] MEDS: Pregabalin 75 MG Capsule 300 MG PO (22:00)
[2020-02-08] MEDS: Atorvastatin Calcium 20 MG Tablet PO (22:02)
[2020-02-08 23:15] LABS: Bedside Glucose 153 mg/dL (70-110)
[2020-02-09 03:09] VITALS: BP 163/72; PULSE 63; RESP 18; TEMP 36.3; O2SAT 92
[2020-02-09 07:05] LABS: Bedside Glucose 131 mg/dL (70-110)
--- NOTE | 2020-02-09 07:27 | PCM.PROGNOTE ---
Patient Problems: Active and Suspected Problems Osteomyelitis (Acute) Subjective: Patient was seen this morning for follow up on left foot. She relates she is well rested, no pain or issues with foot. No complaints this morning. - Physical Exam Vitals/I&O's: Vital Signs Temp Pulse Resp BP Pulse Ox 97.4 F L 63 18 163/72 H 92 02/09/20 03:09 02/09/20 03:09 02/09/20 03:09 02/09/20 03:09 02/09/20 03:09 Oxygen Delivery Method Room Air Weight: 91.9 kg Body Mass Index (BMI) 34.7 Finger Stick Blood Glucose 94 Intake and Output for Last 24 Hours 02/07/20 02/08/20 02/09/20 23:59 23:59 23:59 Intake Total 4193.67 / 4193.67 3010.75 / 3410.75 1660.67 / 1660.67 Output Total 400 / 400 500 / 500 900 / 900 Balance 3793.67 / 3793.67 2510.75 / 2910.75 760.67 / 760.67 General: Alert, Oriented x3, Cooperative, No apparent distress Extremities: Capillary Refill Less than 3 Seconds, Peripheral Pulses Normal, - - Left foot - cellulitis significantly improved, site healing well, sutures intact, no dehiscence, no maloder, no fluctuance, no crepitus, no visible abscess, no purulence, tissues healthy and viable with no evidence of ischemia. No POP or pain on ROM to the left foot. Musculoskeletal: No Tenderness to Palpation of Joints or Extremities Psych/Mental Status: Normal Affect, Alert and oriented to time, place, person, mood and affect Microbiology Past 72 Hours 02/06/20 14:23 Blood Culture (Wb) - Anticubital Left Blood Culture - Preliminary No growth in 48 hours. 02/06/20 14:26 Blood Culture (Wb) - Anticubital Right Blood Culture - Preliminary No growth in 48 hours. 02/07/20 16:00 Bone - Toe Gram Stain - Final 02/07/20 16:00 Bone - Toe Gram Stain - Final 02/06/20 18:00 Wound - Left Foot Gram Stain - Final 02/06/20 18:00 Wound - Left Foot Wound Culture - Preliminary Streptococcus group B Laboratory Results 02/08/20 03:50: Vancomycin Trough 10.3 02/08/20 03:50: WBC 8.9, RBC 3.88 L, Hgb 11.0 L, Hct 34.4 L, MCV 88.7 D, MCH 28.4, MCHC 32.0, RDW Std Deviation 42.6, RDW Coeff of Joseph 13.2, Plt Count 216, MPV 9.5, Immature Gran % (Auto) 1.600 H, Neut % (Auto) 64.9, Lymph % (Auto) 23.2, Wirt % (Auto) 4.5, Eos % (Auto) 5.0, Baso % (Auto) 0.8, Absolute Neuts (auto) 5.8, Absolute Lymphs (auto) 2.06, Nucleated RBC % 0 02/08/20 03:50: Sodium 142, Potassium 3.9, Chloride 110 H, Carbon Dioxide 20.0 L, Anion Gap 12, BUN 11, Creatinine 0.41 L, Estim Creat Clear Calc 126.00, Est GFR (MDRD) Af Amer 204, Est GFR (MDRD) Non-Af 168, BUN/Creatinine Ratio 26.8 H, Glucose 142 H, Calcium 8.0 L, Magnesium 2.8 H, Total Bilirubin 0.20, AST 18, ALT 16, Alkaline Phosphatase 75, Total Protein 5.7 L, Albumin 2.5 L, Globulin 3.2, Albumin/Globulin Ratio 0.8 L 02/08/20 06:54: POC Glucose 184 H 02/08/20 11:51: POC Glucose 191 H 02/08/20 17:13: POC Glucose 153 H 02/08/20 22:12: POC Glucose 153 H 02/09/20 06:51: POC Glucose 131 H Current Medications Acetaminophen (Tylenol) 650 mg PO Q6H PRN PRN PRN Reason: Pain Score 1-10/Temp > 100.7 F Last Admin: 02/08/20 21:59 Dose: 650 mg Documented by: Atenolol (Tenormin (Beta Carola)) 25 mg PO DAILY [facility] Last Admin: 02/08/20 10:00 Dose: Not Given Documented by: Atorvastatin Calcium (Lipitor) 20 mg PO QHS [facility] Last Admin: 02/08/20 22:02 Dose: 20 mg Documented by: Cholecalciferol (Vitamin D (25mcg)) 1,000 unit PO DAILY [facility] Last Admin: 02/08/20 09:02 Dose: 1,000 unit Documented by: Dextrose (D50w Syringe) 0 gm IV X1 PRN; Protocol PRN Reason: Hypoglycemia Glipizide (Glucotrol Xl) 5 mg PO DAILY@0800 [facility] Glucagon () 1 mg IM .X1 PRN PRN Reason: Hypoglycemia Heparin Sodium (Porcine) (Heparin Na) 5,000 unit SC Q12 [facility] Last Admin: 02/08/20 22:10 Dose: 5,000 unit Documented by: Sodium Chloride () 250 mls @ 15 mls/hr IV .[id number] PRN PRN Reason: Saline Flush Last Infusion: 02/08/20 18:56 Dose: 0 mls/hr Documented by: Sodium Chloride () 250 mls @ 15 mls/hr IV .[id number] PRN PRN Reason: Additional IVPB Infusion Vancomycin IV Pharmacy to Dose (1 ea/ Sodium Chloride) 500 mls @ 250 mls/hr IV PRN PRN; Protocol PRN Reason: Rx to Dose Ampicillin Sodium/Sulbactam (Sodium 3 gm/ Sodium Chloride) 112 mls @ 150 mls/hr IV Q6 [facility] Last Infusion: 02/09/20 06:55 Dose: Infused Documented by: Lactated Ringer's () 1,000 mls @ 100 mls/hr IV .Q10H [facility] Last Infusion: 02/09/20 07:00 Dose: 100 mls/hr Documented by: Vancomycin HCl 1,750 mg/ (Sodium Chloride) 535 mls @ 250 mls/hr IV Q12H [facility] Last Infusion: 02/09/20 05:25 Dose: Infused Documented by: Insulin Human Lispro (Humalog Kwikpen (Bkc)) 0 unit SC ACHS [facility]; Protocol Last Admin: 02/09/20 06:59 Dose: Not Given Documented by: Lisinopril (Zestril) 5 mg PO DAILY [facility] Last Admin: 02/08/20 14:30 Dose: 5 mg Documented by: Metformin HCl (Glucophage Xr) 1,000 mg PO BIDCM [facility] Last Admin: 02/08/20 17:18 Dose: 1,000 mg Documented by: Nutritional Formula (Alli - [place] Flavor) [facility] Last Admin: 02/08/20 17:17 Dose: 1 packet Documented by: Nutritional Formula (Lactose Free) (Glucerna Shake) 120 ml PO 4X/DAY [facility] Last Admin: 02/08/20 22:01 Dose: 120 ml Documented by: Ondansetron HCl (Zofran) 4 mg IV Q8H PRN PRN PRN Reason: NAUSEA/VOMITING Last Admin: 02/07/20 06:05 Dose: 4 mg Documented by: Pregabalin (Lyrica) 300 mg PO QHS [facility] Last Admin: 02/08/20 22:00 Dose: 300 mg Documented by: Pregabalin (Lyrica) 150 mg PO BREAKFAST [facility] Sertraline HCl (Zoloft) 100 mg PO DAILY [facility] Last Admin: 02/08/20 09:02 Dose: 100 mg Documented by: Sodium Chloride () 10 - 40 ml IV UD PRN PRN Reason: SALINE FLUSH Last Admin: 02/08/20 20:07 Dose: 10 ml Documented by: Medical Necessity - Tobacco Use Smoking Status: Never smoker Tobacco Use: Non-smoker Assessment/Plan All Active Problems Osteomyelitis (Acute) -Cellulitis, Abscess with 2nd digit/metatarsal osteomyelitis left forefoot, Ulceration down to bone left foot - s/p debridement, 2nd toe and 2nd met head resection on 02/07/20 -Diabetic neuropathy Left foot continues to improve and continues to look good today. Changed dressing applied gauze, kerlix and zach bandage. Keep clean, dry, and intact. Weightbearing: Ok to heel weightbearing to left foot w/ offloading surgical shoe and use of walker. Continue to follow cultures - initial wound culture with strep - patient on IV antibiotics per Dr. Avalos/Infectious Disease. Reviewed noninvasive lower extremity arterial studies - good arterial flow to foot. Ok to d/c from foot standpoint once final antibiotic plan is determined. Podiatry will continue to follow, otherwise after d/c patient to follow up [facility] Wednesday or Wednesday to check foot.
[2020-02-09] MEDS: metFORMIN (XR) 500 MG Tablet 1000 MG PO (08:49)
[2020-02-09] MEDS: Glucerna Shake 120 ML LIQUID PO (08:49)
[2020-02-09] MEDS: glipiZIDE XL 5 MG Tablet PO (08:49)
[2020-02-09] MEDS: Pregabalin 75 MG Capsule 150 MG PO (08:49)
[2020-02-09] MEDS: Atenolol 25 MG Tablet PO (08:49)
[2020-02-09] MEDS: Lisinopril 5 MG Tablet PO (08:50)
[2020-02-09] MEDS: Lactated Ringers 1,000 ML 100 ML IV (08:50)
[2020-02-09 09:15] VITALS: BP 172/70; PULSE 74; RESP 18; TEMP 36.5; O2SAT 94
--- NOTE | 2020-02-09 09:40 | NURSING ---
wound photo: left foot
--- NOTE | 2020-02-09 09:41 | NURSING ---
wound photo: left foot
--- NOTE | 2020-02-09 11:04 | PCM.PN.HOSP ---
Patient Problems: Active and Suspected Problems Osteomyelitis (Acute) Reason for Visit: OM Subjective: Feels well. No new complaints. Vitals/I&O's: Vital Signs Temp Pulse Resp BP Pulse Ox 36.5 C L 74 18 172/70 H 94 02/09/20 09:15 02/09/20 09:15 02/09/20 09:15 02/09/20 09:15 02/09/20 09:15 Oxygen Delivery Method Room Air Weight: 91.9 kg Body Mass Index (BMI) 34.7 Finger Stick Blood Glucose 94 Intake and Output for Last 24 Hours 02/07/20 02/08/20 02/09/20 23:59 23:59 23:59 Intake Total 4193.67 / 4193.67 3010.75 / 3410.75 1797.33 / 1797.33 Output Total 400 / 400 500 / 500 900 / 900 Balance 3793.67 / 3793.67 2510.75 / 2910.75 897.33 / 897.33 General: Alert, No apparent distress HEENT: Atraumatic, Normocephalic Oral: Moist Mucosa, No Gingival or Mucosal Lesions/ Ulcerations Neck: No Nodes, Trachea Midline Lungs: Clear to auscultation, Normal air movement, No rhonchi, No wheeze, No rales Cardiovascular: Regular rate, Regular Rhythm, Normal S1, Normal S2, No murmurs Abdomen: Bowel Sounds Present, Soft, Non Tender, Non-Distended, No Hepato-splenomegaly Extremities: No edema, No Calf Tenderness, Peripheral Pulses Normal, - - left foot wrapped, did not remove. Skin: No rashes, No breakdown Psych/Mental Status: Normal Affect, Appropriate Microbiology Past 72 Hours 02/07/20 16:00 Bone - Toe Gram Stain - Final 02/07/20 16:00 Bone - Toe Wound Culture - Preliminary No growth-Final to follow 02/06/20 18:00 Wound - Left Foot Gram Stain - Final 02/06/20 18:00 Wound - Left Foot Wound Culture - Final Streptococcus agalactiae (B) 02/06/20 18:00 Wound - Left Foot Anaerobic Culture - Final No anaerobic bacteria isolated. 02/06/20 14:23 Blood Culture (Wb) - Anticubital Left Blood Culture - Preliminary No growth in 48 hours. 02/06/20 14:26 Blood Culture (Wb) - Anticubital Right Blood Culture - Preliminary No growth in 48 hours. 02/07/20 16:00 Bone - Toe Gram Stain - Final Laboratory Results 02/08/20 03:50: WBC 8.9, RBC 3.88 L, Hgb 11.0 L, Hct 34.4 L, MCV 88.7 D, MCH 28.4, MCHC 32.0, RDW Std Deviation 42.6, RDW Coeff of Joseph 13.2, Plt Count 216, MPV 9.5, Immature Gran % (Auto) 1.600 H, Neut % (Auto) 64.9, Lymph % (Auto) 23.2, [facility] % (Auto) 4.5, Eos % (Auto) 5.0, Baso % (Auto) 0.8, Absolute Neuts (auto) 5.8, Absolute Lymphs (auto) 2.06, Nucleated RBC % 0 02/08/20 11:51: POC Glucose 191 H 02/08/20 17:13: POC Glucose 153 H 02/08/20 22:12: POC Glucose 153 H 02/09/20 06:51: POC Glucose 131 H Current Medications Acetaminophen (Tylenol) 650 mg PO Q6H PRN PRN PRN Reason: Pain Score 1-10/Temp > 100.7 F Last Admin: 02/08/20 21:59 Dose: 650 mg Documented by: Atenolol (Tenormin (Beta Carola)) 25 mg PO DAILY [facility] Last Admin: 02/09/20 08:49 Dose: 25 mg Documented by: Atorvastatin Calcium (Lipitor) 20 mg PO QHS [facility] Last Admin: 02/08/20 22:02 Dose: 20 mg Documented by: Dextrose (D50w Syringe) 0 gm IV X1 PRN; Protocol PRN Reason: Hypoglycemia Glipizide (Glucotrol Xl) 5 mg PO DAILY@0800 [facility] Last Admin: 02/09/20 08:49 Dose: 5 mg Documented by: Glucagon () 1 mg IM .X1 PRN PRN Reason: Hypoglycemia Heparin Sodium (Porcine) (Heparin Na) 5,000 unit SC Q12 [facility] Last Admin: 02/08/20 22:10 Dose: 5,000 unit Documented by: Sodium Chloride () 250 mls @ 15 mls/hr IV .[id number] PRN PRN Reason: Saline Flush Last Infusion: 02/08/20 18:56 Dose: 0 mls/hr Documented by: Sodium Chloride () 250 mls @ 15 mls/hr IV .[id number] PRN PRN Reason: Additional IVPB Infusion Vancomycin IV Pharmacy to Dose (1 ea/ Sodium Chloride) 500 mls @ 250 mls/hr IV PRN PRN; Protocol PRN Reason: Rx to Dose Ampicillin Sodium/Sulbactam (Sodium 3 gm/ Sodium Chloride) 112 mls @ 150 mls/hr IV Q6 [facility] Last Infusion: 02/09/20 06:55 Dose: Infused Documented by: Lactated Ringer's () 1,000 mls @ 100 mls/hr IV .Q10H [facility] Last Admin: 02/09/20 08:50 Dose: 100 mls/hr Documented by: Vancomycin HCl 1,750 mg/ (Sodium Chloride) 535 mls @ 250 mls/hr IV Q12H [facility] Last Infusion: 02/09/20 05:25 Dose: Infused Documented by: Insulin Human Lispro (Humalog Kwikpen (Bkc)) 0 unit SC ACHS [facility]; Protocol Last Admin: 02/09/20 06:59 Dose: Not Given Documented by: Lisinopril (Zestril) 5 mg PO DAILY [facility] Last Admin: 02/09/20 08:50 Dose: 5 mg Documented by: Metformin HCl (Glucophage Xr) 1,000 mg PO BIDCM [facility] Last Admin: 02/09/20 08:49 Dose: 1,000 mg Documented by: Nutritional Formula (Alli - [place] Flavor) 1 packet PO BIDCM [facility] Last Admin: 02/09/20 08:50 Dose: Not Given Documented by: Nutritional Formula (Lactose Free) (Glucerna Shake) 120 ml PO 4X/DAY [facility] Last Admin: 02/09/20 08:49 Dose: 120 ml Documented by: Ondansetron HCl (Zofran) 4 mg IV Q8H PRN PRN PRN Reason: NAUSEA/VOMITING Last Admin: 02/07/20 06:05 Dose: 4 mg Documented by: Pregabalin (Lyrica) 300 mg PO QHS [facility] Last Admin: 02/08/20 22:00 Dose: 300 mg Documented by: Pregabalin (Lyrica) 150 mg PO BREAKFAST [facility] Last Admin: 02/09/20 08:49 Dose: 150 mg Documented by: Sertraline HCl (Zoloft) 100 mg PO DAILY [facility] Last Admin: 02/08/20 09:02 Dose: 100 mg Documented by: Sodium Chloride () 10 - 40 ml IV UD PRN PRN Reason: SALINE FLUSH Last Admin: 02/08/20 20:07 Dose: 10 ml Documented by: STROKE Vital Signs/Narrative: Vital Signs Temp Pulse Resp BP Pulse Ox 02/09/20 09:15 36.5 C L 74 18 172/70 H 94 Medical Necessity - Tobacco Use Smoking Status: Never smoker Tobacco Use: Non-smoker Assessment/Plan All Active Problems Osteomyelitis (Acute) 1. left diabetic foot infection with osteomyelitis MRI shows mild to moderate OM of the 2nd proximal phalanx, 2nd metatarsal plus a small SQ abscess overlying the 2nd proximal phalanx had debridement on 02/06 down to bone by Dr. aDyana Nguyen currently being performed. on amp/sulbactam and vancomycin ID consult heel weight bearing 2. DM 2 fair control home meds held for now, anticipate resumption post surgery continue SSi for now. a1c 7 3. hypokalemia improved after replacement 4. VTE prophylaxis: SQ heparin. Inpatient E&M: 01568 Subs Hosp L2
[2020-02-09] MEDS: Heparin Injection (Vial) 5,000 UNIT/ML VIAL 5000 UNIT SC (11:15)
[2020-02-09 11:36] LABS: Bedside Glucose 209 mg/dL (70-110)
[2020-02-09] MEDS: Insulin Lispro 100 UNIT/ML INSULN.PEN SC (12:16)
--- NOTE | 2020-02-09 14:19 | CASEMGMT ---
Addendum entered by Nancy Hernandez 02/09/20 15:24: D/C summ/instructions faxed to [facility] at this time. Boaz JUÁREZ CM Original Note: Per Dr. Avalos, pt to be sent home on po antibx at this time. This RN CM to room to discuss discharge plan with pt at this time and pt is still agreeable to [facility] for wound care/dressing change at this time and states would like [facility] at this time. Pt had previously been provided a list of in-network tertiary facilities. Call to Sl[facility] at [facility] and she states that they should be able to take pt at this time but to fax referral to [phone] and/or [phone] at this time. Referral faxed to [facility] at this time. Pt states no further questions/concerns/needs at this time. Boaz JUÁREZ CM
--- NOTE | 2020-02-09 14:28 | PCM.PN.ID ---
Patient Problems: Active and Suspected Problems Osteomyelitis (Acute) Subjective: Feeling well, no fever, no n/v/d. - Physical Exam Vitals/I&O's: Vital Signs Temp Pulse Resp BP Pulse Ox 97.7 F L 74 18 172/70 H 94 02/09/20 09:15 02/09/20 09:15 02/09/20 09:15 02/09/20 09:15 02/09/20 09:15 Oxygen Delivery Method Room Air Weight: 91.9 kg Body Mass Index (BMI) 34.7 Finger Stick Blood Glucose 94 Intake and Output for Last 24 Hours 02/07/20 02/08/20 02/09/20 23:59 23:59 23:59 Intake Total 4193.67 / 4193.67 3010.75 / 3410.75 2037.33 / 2037.33 Output Total 400 / 400 500 / 500 900 / 900 Balance 3793.67 / 3793.67 2510.75 / 2910.75 1137.33 / 1137.33 General: Alert, Cooperative, No apparent distress Lungs: Clear to auscultation, Normal air movement Cardiovascular: Regular rate, Regular Rhythm Abdomen: Soft, Non Tender, Non-Distended Skin: Ulcer/ Wound - foot wrapped Microbiology Past 72 Hours 02/07/20 16:00 Bone - Toe Gram Stain - Final 02/07/20 16:00 Bone - Toe Wound Culture - Preliminary No growth-Final to follow 02/06/20 18:00 Wound - Left Foot Gram Stain - Final 02/06/20 18:00 Wound - Left Foot Wound Culture - Final Streptococcus agalactiae (B) 02/06/20 18:00 Wound - Left Foot Anaerobic Culture - Final No anaerobic bacteria isolated. 02/06/20 14:23 Blood Culture (Wb) - Anticubital Left Blood Culture - Preliminary No growth in 48 hours. 02/06/20 14:26 Blood Culture (Wb) - Anticubital Right Blood Culture - Preliminary No growth in 48 hours. 02/07/20 16:00 Bone - Toe Gram Stain - Final Laboratory Results 02/08/20 17:13: POC Glucose 153 H 02/08/20 22:12: POC Glucose 153 H 02/09/20 06:51: POC Glucose 131 H 02/09/20 11:24: POC Glucose 209 H Current Medications Acetaminophen (Tylenol) 650 mg PO Q6H PRN PRN PRN Reason: Pain Score 1-10/Temp > 100.7 F Last Admin: 02/08/20 21:59 Dose: 650 mg Documented by: Atenolol (Tenormin (Beta Carola)) 25 mg PO DAILY [facility] Last Admin: 02/09/20 08:49 Dose: 25 mg Documented by: Atorvastatin Calcium (Lipitor) 20 mg PO QHS [facility] Last Admin: 02/08/20 22:02 Dose: 20 mg Documented by: Dextrose (D50w Syringe) 0 gm IV X1 PRN; Protocol PRN Reason: Hypoglycemia Glipizide (Glucotrol Xl) 5 mg PO DAILY@0800 [facility] Last Admin: 02/09/20 08:49 Dose: 5 mg Documented by: Glucagon () 1 mg IM .X1 PRN PRN Reason: Hypoglycemia Heparin Sodium (Porcine) (Heparin Na) 5,000 unit SC Q12 [facility] Last Admin: 02/09/20 11:15 Dose: 5,000 unit Documented by: Sodium Chloride () 250 mls @ 15 mls/hr IV .[id number] PRN PRN Reason: Saline Flush Last Infusion: 02/08/20 18:56 Dose: 0 mls/hr Documented by: Sodium Chloride () 250 mls @ 15 mls/hr IV .[id number] PRN PRN Reason: Additional IVPB Infusion Ampicillin Sodium/Sulbactam (Sodium 3 gm/ Sodium Chloride) 112 mls @ 150 mls/hr IV Q6 [facility] Last Admin: 02/09/20 11:14 Dose: 150 mls/hr Documented by: Lactated Ringer's () 1,000 mls @ 100 mls/hr IV .Q10H [facility] Last Infusion: 02/09/20 11:14 Dose: 0 mls/hr Documented by: Insulin Human Lispro (Humalog Kwikpen (Bkc)) 0 unit SC ACHS [facility]; Protocol Last Admin: 02/09/20 12:16 Dose: 1 units Documented by: Lisinopril (Zestril) 5 mg PO DAILY [facility] Last Admin: 02/09/20 08:50 Dose: 5 mg Documented by: Metformin HCl (Glucophage Xr) 1,000 mg PO BIDCM [facility] Last Admin: 02/09/20 08:49 Dose: 1,000 mg Documented by: Nutritional Formula (Alli - [place] Flavor) 1 packet PO BIDCM [facility] Last Admin: 02/09/20 08:50 Dose: Not Given Documented by: Nutritional Formula (Lactose Free) (Glucerna Shake) 120 ml PO 4X/DAY [facility] Last Admin: 02/09/20 08:49 Dose: 120 ml Documented by: Ondansetron HCl (Zofran) 4 mg IV Q8H PRN PRN PRN Reason: NAUSEA/VOMITING Last Admin: 02/07/20 06:05 Dose: 4 mg Documented by: Pregabalin (Lyrica) 300 mg PO QHS [facility] Last Admin: 02/08/20 22:00 Dose: 300 mg Documented by: Pregabalin (Lyrica) 150 mg PO BREAKFAST [facility] Last Admin: 02/09/20 08:49 Dose: 150 mg Documented by: Sertraline HCl (Zoloft) 100 mg PO DAILY [facility] Last Admin: 02/08/20 09:02 Dose: 100 mg Documented by: Sodium Chloride () 10 - 40 ml IV UD PRN PRN Reason: SALINE FLUSH Last Admin: 02/08/20 20:07 Dose: 10 ml Documented by: Medical Necessity - Tobacco Use Smoking Status: Never smoker Tobacco Use: Non-smoker Route of nutrition/ use of supplements: [] Nutritional Intake: [] IV Site: [] Matute Catheter: [] - Assessment/Plan Antibiotics: [] Assessment/Plan: [] GBS L foot osteo and abscess seen on MRI with h/o DM neuropathy and prior toe fusion. Wound cx with GPC on gram stain, cx now showing strep. OR 02/[address] Anne for I&D. Reports rash with PCN, no issue with amox in the past. Ok for d/c home on po duricef for one month, and 10 days of flagyl. ID followup with me in 2 weeks. Clearance cx neg so far. Wrote rx. Will follow, d/w case specialist
--- NOTE | 2020-02-09 14:43 | DCINST_ITS ---
- Discharge Diagnoses Current Active Problems: Current Active and Chronic Problems Osteomyelitis (Acute) You will use the following diet at home:: Calorie/Carbohydrate Controlled (specify 1200, 1400, etc) - 1800 Your food should be the consistency of: Regular Your liquids should be the consistency of: Regular/Thin Discharge Activity: Return to Normal Activity Weight Bearing Status: - - left heel weight bearing Keep extremity elevated above heart level: Left Leg Call your doctor if your incision/area has: Continuous Slow Oozing, Increased Pain/ Swelling, Increased Redness Call your doctor if you observe: Fever of 101 or Higher Allergies/Adverse Reactions: Allergies Gadolinium-MRI Contrast Medium Allergy (Verified 02/06/20 13:43) Rash Penicillins Allergy (Verified 02/06/20 13:43) Rash Medications to take at Discharge Atenolol [Tenormin] 25 mg PO QHS 02/06/20 Atorvastatin Calcium [Lipitor] 20 mg PO QHS 02/06/20 Cholecalciferol (VIT D3) [Vitamin D3] 1,000 unit PO DAILY 02/06/20 Lisinopril [Zestril] 5 mg PO DAILY 02/06/20 Metformin HCl [Metformin HCl ER] 1,000 mg PO BID 02/06/20 Sertraline HCl [Zoloft] 100 mg PO DAILY 02/06/20 glipiZIDE XL [Glucotrol Xl] 5 mg PO DAILY@0800 02/06/20 Pregabalin [Lyrica] 1 cap PO QHS 02/08/20 Pregabalin [Lyrica] 150 mg PO BREAKFAST 02/08/20 Cefadroxil [Duricef] 1,000 mg PO BID #120 cap 02/09/20 Metronidazole [Flagyl] 500 mg PO TID #30 tab 02/09/20 The following prescriptions were given: Cefadroxil [Duricef] 1,000 mg PO BID #120 cap Transmission Status: Received by [id number] Metronidazole [Flagyl] 500 mg PO TID #30 tab Transmission Status: Received by [facility][id number] Primary Care Physician: Yoandy Montoya MD [Primary Care Provider] - Within 2 Weeks Test Results: Test results from this visit will be discussed in further detail at your follow- up appointment, if applicable. Please Follow Up With: Dinesh Anne DPM When: 1 week Proposed Discharge Date: 02/09/20
--- NOTE | 2020-02-09 14:45 | DS.PCM_ITS ---
Discharge Date and Diagnosis - Problem List Patient Problems: Active and Suspected Problems Osteomyelitis (Acute) Date of Admission: 02/06/20 Date of Discharge: 02/09/20 - Primary Discharge Diagnosis Active and Suspected Problems 1. left diabetic foot infection with osteomyelitis - Secondary Discharge Diagnosis Chronic Problems Diabetes (Chronic) Sleep apnea (Chronic) Neuropathy (Chronic) Asthma (Chronic) Hypertension (Chronic) High cholesterol (Chronic) Hospital Course and Treatment Consultations 02/08/20 16:31 Consult: Onc/Wound/retail event and sales assistant Routine Comment: Reason for Consult:: s/p debridement left foot Comments:: painting betadine to incision site, w/ gauze dressing Niloing: podiatry Robbie: MALIK Operations: - - Debridement of ulceration down to bone, left foot Summary of Care Provided: The patient is a 59 year old F presents with a one-week history of infection of her left foot. Patient was noticing swelling that progressively got worse. 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 Patient was initiated on antibiotics and but was having nausea. Patient was instructed to come into the emergency room for evaluation. Patient was subsequently mated and started on IV antibiotics. Patient had an MRI of her left foot that showed mild to moderate osteomyelitis of the second proximal phalanx, developing osteomyelitis of the second metatarsal bone as well as an abscess on the dorsum of the second phalanx. Patient underwent debridement of the bone on the first. Patient had clean margins. Wound culture showed group B strep. Infectious disease was consulted and recommended a 1 month course of cefadroxil and metronidazole. Patient will be discharged today. Patient will be discharged with home health care and will be following up with infectious disease, podiatry and her primary care physician as outpatient. Patient will be heel weightbearing on the left foot. [] Patient Problems: Active and Suspected Problems Osteomyelitis (Acute) - Physical Exam Vitals/I&O's: Vital Signs Temp Pulse Resp BP Pulse Ox 36.5 C L 74 18 172/70 H 94 02/09/20 09:15 02/09/20 09:15 02/09/20 09:15 02/09/20 09:15 02/09/20 09:15 Oxygen Delivery Method Room Air Weight: 91.9 kg Body Mass Index (BMI) 34.7 Finger Stick Blood Glucose 94 Intake and Output for Last 24 Hours 02/07/20 02/08/2020 23:59 23:59 23:59 Intake Total 4193.67 / 4193.67 3010.75 / 3410.75 2037.33 / 2037.33 Output Total 400 / 400 500 / 500 900 / 900 Balance 3793.67 / 3793.67 2510.75 / 2910.75 1137.33 / 1137.33 Microbiology Past 72 Hours 02/07/20 16:00 Bone - Toe Gram Stain - Final 02/07/20 16:00 Bone - Toe Wound Culture - Preliminary No growth-Final to follow 02/06/20 18:00 Wound - Left Foot Gram Stain - Final 02/06/20 18:00 Wound - Left Foot Wound Culture - Final Streptococcus agalactiae (B) 02/06/20 18:00 Wound - Left Foot Anaerobic Culture - Final No anaerobic bacteria isolated. 02/06/20 14:23 Blood Culture (Wb) - Anticubital Left Blood Culture - Preliminary No growth in 48 hours. 02/06/20 14:26 Blood Culture (Wb) - Anticubital Right Blood Culture - Preliminary No growth in 48 hours. 02/07/20 16:00 Bone - Toe Gram Stain - Final Laboratory Results 02/08/20 17:13: POC Glucose 153 H 02/08/20 22:12: POC Glucose 153 H 02/09/20 06:51: POC Glucose 131 H 02/09/20 11:24: POC Glucose 209 H Current Medications Acetaminophen (Tylenol) 650 mg PO Q6H PRN PRN PRN Reason: Pain Score 1-10/Temp > 100.7 F Last Admin: 02/08/20 21:59 Dose: 650 mg Documented by: Atenolol (Tenormin (Beta Carola)) 25 mg PO DAILY [facility] Last Admin: 02/09/20 08:49 Dose: 25 mg Documented by: Atorvastatin Calcium (Lipitor) 20 mg PO QHS [facility] Last Admin: 02/08/20 22:02 Dose: 20 mg Documented by: Dextrose (D50w Syringe) 0 gm IV X1 PRN; Protocol PRN Reason: Hypoglycemia Glipizide (Glucotrol Xl) 5 mg PO DAILY@0800 [facility] Last Admin: 02/09/20 08:49 Dose: 5 mg Documented by: Glucagon () 1 mg IM .X1 PRN PRN Reason: Hypoglycemia Heparin Sodium (Porcine) (Heparin Na) 5,000 unit SC Q12 [facility] Last Admin: 02/09/20 11:15 Dose: 5,000 unit Documented by: Sodium Chloride () 250 mls @ 15 mls/hr IV .[id number] PRN PRN Reason: Saline Flush Last Infusion: 02/08/20 18:56 Dose: 0 mls/hr Documented by: Sodium Chloride () 250 mls @ 15 mls/hr IV .[id number] PRN PRN Reason: Additional IVPB Infusion Ampicillin Sodium/Sulbactam (Sodium 3 gm/ Sodium Chloride) 112 mls @ 150 mls/hr IV Q6 [facility] Last Admin: 02/09/20 11:14 Dose: 150 mls/hr Documented by: Lactated Ringer's () 1,000 mls @ 100 mls/hr IV .Q10H [facility] Last Infusion: 02/09/20 11:14 Dose: 0 mls/hr Documented by: Insulin Human Lispro (Humalog Kwikpen (Bkc)) 0 unit SC ACHS [facility]; Protocol Last Admin: 02/09/20 12:16 Dose: 1 units Documented by: Lisinopril (Zestril) 5 mg PO DAILY [facility] Last Admin: 02/09/20 08:50 Dose: 5 mg Documented by: Metformin HCl (Glucophage Xr) 1,000 mg PO BIDCM [facility] Last Admin: 02/09/20 08:49 Dose: 1,000 mg Documented by: Nutritional Formula (Alli - [place] Flavor) 1 packet PO BIDCM [facility] Last Admin: 02/09/20 08:50 Dose: Not Given Documented by: Nutritional Formula (Lactose Free) (Glucerna Shake) 120 ml PO 4X/DAY [facility] Last Admin: 02/09/20 08:49 Dose: 120 ml Documented by: Ondansetron HCl (Zofran) 4 mg IV Q8H PRN PRN PRN Reason: NAUSEA/VOMITING Last Admin: 02/07/20 06:05 Dose: 4 mg Documented by: Pregabalin (Lyrica) 300 mg PO QHS [facility] Last Admin: 02/08/20 22:00 Dose: 300 mg Documented by: Pregabalin (Lyrica) 150 mg PO BREAKFAST [facility] Last Admin: 02/09/20 08:49 Dose: 150 mg Documented by: Sertraline HCl (Zoloft) 100 mg PO DAILY [facility] Last Admin: 02/08/20 09:02 Dose: 100 mg Documented by: Sodium Chloride () 10 - 40 ml IV UD PRN PRN Reason: SALINE FLUSH Last Admin: 02/08/20 20:07 Dose: 10 ml Documented by: Discharge Diet: 1800 Calorie Control Diet Discharge Activity: Return to Normal Activity Weight Bearing Status: - - left heel weight bearing Keep extremity elevated above heart level: Left Leg Call your doctor if your incision/area has: Continuous Slow Oozing, Increased Pain/ Swelling, Increased Redness Call your doctor if you observe: Fever of 101 or Higher Home Medications: Medications to take at Discharge Atenolol [Tenormin] 25 mg PO QHS 02/06/20 Atorvastatin Calcium [Lipitor] 20 mg PO QHS 02/06/20 Cholecalciferol (VIT D3) [Vitamin D3] 1,000 unit PO DAILY 02/06/20 Lisinopril [Zestril] 5 mg PO DAILY 02/06/20 Metformin HCl [Metformin HCl ER] 1,000 mg PO BID 02/06/20 Sertraline HCl [Zoloft] 100 mg PO DAILY 02/06/20 glipiZIDE XL [Glucotrol Xl] 5 mg PO DAILY@0800 02/06/20 Pregabalin [Lyrica] 1 cap PO QHS 02/08/20 Pregabalin [Lyrica] 150 mg PO BREAKFAST 02/08/20 Cefadroxil [Duricef] 1,000 mg PO BID #120 cap 02/09/20 Metronidazole [Flagyl] 500 mg PO TID #30 tab 02/09/20 Following Prescrptions Were Given to Patient: Cefadroxil [Duricef] 1,000 mg PO BID #120 cap Transmission Status: Received by [facility] #[id number] Metronidazole [Flagyl] 500 mg PO TID #30 tab Transmission Status: Received by [facility] #[id number] Primary Care Physician: Yoandy Montoya MD [Primary Care Provider] - Within 2 Weeks Please Follow Up With: Dinesh Anne DPM When: 1 week Disposition: Home with Home Health Minutes spent on discharge:: 32 Patient Condition:: Good Medical Necessity - Tobacco Use Smoking Status: Never smoker Tobacco Use: Non-smoker Meaningful Use Info Meaningful Use Diagnoses (Choose all that apply): None applicable Inpatient E&M: 93729 Disch Hosp
[2020-02-09 15:15] VITALS: BP 178/72; PULSE 71; RESP 16; TEMP 36.7; O2SAT 94
== END 2020-02-09 16:16 | disposition home or self-care (01) | DRG 617 ==
LOC: ED 14:20 → PCU 16:38
PROVIDERS: Podiatrist; Admitting Provider Internal Medicine; Emergency Provider Emergency Medicine; PCP Family Medicine
PROC: 0Y6N0ZB Detachment at Left Foot, Partial 2nd Ray, Open Approach (ICD-10-PCS; principal; 2020-02-07 15:15)
DX: E11.69 Type 2 diabetes mellitus with other specified complication (principal); L02.612 Cutaneous abscess of left foot; M86.8X7 Other osteomyelitis, ankle and foot; E11.628 Type 2 diabetes mellitus with other skin complications; I10 Essential (primary) hypertension; G47.33 Obstructive sleep apnea (adult) (pediatric); E87.6 Hypokalemia; E11.42 Type 2 diabetes mellitus with diabetic polyneuropathy; E11.621 Type 2 diabetes mellitus with foot ulcer; L97.524 Non-pressure chronic ulcer of other part of left foot with necrosis of bone; J45.909 Unspecified asthma, uncomplicated; Z88.0 Allergy status to penicillin; Z79.84 Long term (current) use of oral hypoglycemic drugs; E78.00 Pure hypercholesterolemia, unspecified; B95.1 Streptococcus, group B, as the cause of diseases classified elsewhere
CPT/HCPCS: 36415; 73630; 73660; 73718; 76000; 80048; 80053; 80076; 80202; 82962; 83036; 83735; 85025; 87015; 87040; 87070; 87075; 87077; 87102; 87116; 87186; 87205; 87206; 87640; 88304; 88305; 88311; 88312; 93923; 97802; 99285; J7030; J7040; J7050; J7120; A4216; J0295; J0744; J2405

== ENCOUNTER → 2020-02-19 10:25 | Outpatient (CLI) | payer MEDICARE, SELFPAY ==
[2020-02-07 08:57] VITALS: BMI 34.7
[2020-02-19 11:06] LABS: Hematocrit 42.5 % (37-47); Hemoglobin 14.1 g/dL (12.0-15.0); Mean Corp Hgb Conc 33.2 g/dL (32-36); Mean Corpuscular Hgb 27.9 pg (27.0-32.0); Mean Platelet Vol. 9.7 fl (6.2-12.0); Platelet Count 339 K/mm3 (150-450); RBC Distribution Width CV 14.1 % (11.6-14.6); RBC Distribution Width SD 42.6 fl (35.1-43.9); Red Blood Count 5.06 M/mm3 (4.2-5.4); White Blood Count 9.9 K/mm3 (4.4-11.0)
[2020-02-19 11:31] LABS: Anion Gap 8 (5-15); BUN 22 mg/dL (7-18); BUN/Creat Ratio 31.2 RATIO (10-20); Calcium,Total 9.7 mg/dL (8.5-10.1); Chloride 106 mmol/L (98-107); Creatinine, Serum 0.71 mg/dL (0.55-1.02); EST Glomerular Filtration Rate 90 mL/min (>60); Est Glom Filt Rate - Afr Amer 109 mL/min (>60); Glucose 206 mg/dL (74-106); Potassium 5.1 mmol/L (3.5-5.1); Sodium Level 138 mmol/L (136-145)
[2020-02-19 11:44] LABS: Erythrocyte Sedimentation Rate 27 mm/hr (0-30)
== END ==
PROVIDERS: PCP Family Medicine; Referring Provider Internal Medicine Infectious Disease; Visit Provider Internal Medicine Infectious Disease
DX: M86.9 Osteomyelitis, unspecified (principal)
CPT/HCPCS: 36415; 80048; 85027; 85652